=== PATIENT | female | born 1980 | race Caucasian/White ===

== ENCOUNTER 2025-05-11 08:58 | Outpatient (AMB) | payer OTHER, SELFPAY ==
--- OUTSIDE RECORDS SUMMARY | 2025-05-07 11:07 | XMS_ITS | Encounter Summary ---
Author Organization [facility] Address [address] [place] [address] Care Team Providers Care Grief Counselor Name Role Phone Caremn Berkowitz MD Primary Care Provider Unavailable Reason for Visit * Auth/Cert Specialty Diagnoses / Procedures Referred By Khari sanders Referred To Contact Diagnoses Stomach ache Procedures FL ESOPHAGOGASTRODUODENOSCOPY TRANSORAL DIAGNOSTIC FL EGD TRANSORAL BIOPSY SINGLE/MULTIPLE ENDOSCOPY UPPER Referral ID Status Reason Start Date Expiration Date Visits Re quested Visits Authorized [id number] 1 1 Encounter Details Date Type Department Care Team (Latest Contact Info) Description 05/07/2025 11:07 AM EDT - 05/07/2025 12:50 PM EDT Hospital Encounter [facility] Gastro[facility]ology [facility] [address] [place] [phone] Leo Cates MD 85 [facility] [address] [place] [address] Discharge Disposition: Home or Self Care Social History Tobacco Use Types Packs/Day Years Used Date Smoking Tobacco: Never Smokeless Tobacco: Never Alcohol Use Standard Drinks/Week Comments Never 0 (1 standard drink = 0.6 oz pur e alcohol) 0 AUDIT-C Answer Date Recorded Q1: How often do you have a drink containing alcohol? Never 05/06/2025 Q2: How many drinks containi ng alcohol do you have on a typical day when you are drinking? Patient does not drink Q3: How often do you have si x or more drinks on one occasion? Never 05/06/2025 Comments No Sex and Gender Information Value Date Recorded Sex Assigned at Female 01/07/2024 11:30 AM EDT Legal Sex Female 9:33 AM EDT Gender Identity Female 01/07/2024 11:30 AM EDT Sexual Orientation Not on file documented as of this encounter Last Filed Vital Signs Vital Sign Reading Time Taken Comments Blood Pressure 126/78 05/07/2025 12:34 PM EDT Pulse 83 05/07/2025 12:21 PM EDT Temperature 36.1 C (96.9 F) 05/07/2025 11:32 AM EDT Respiratory Rate 22 05/07/2025 12:34 PM EDT Oxygen Saturation 97% 05/07/2025 12:34 PM EDT Inhaled Oxygen Concentration - - Weight 120 kg (265 lb) 05/06/2025 9:29 AM EDT Height 157.5 cm (5' 2 ) 05/06/2025 9:29 AM EDT Body Mass Index 48.47 05/06/2025 9:29 AM EDT documented in this encounter Functional Status * Audit-C Score Answer Date of Assessment Author 0 05/06/2025 9:37 AM EDT Aftab Cleveland RN * Question Answer Date of Assessment Author Q1: How often do you have a drink containing alcohol? Never 05/06/2025 9:37 AM EDT Kenia Cleveland R N Q2: How many drinks containing alcohol do you have on a typical day when you are drinking? Patient does not drink 05/06/2025 9:37 AM EDT Kenia Cleveland RN Q3: How often do you have six or more drinks on one occasion? Never 05/06/2025 9:37 AM EDT Kenia Cleveland R N documented as of this encounter Medications at Time of Discharge Azelastine-Flutic asone 137-50 MCG/ACT SuspensionIndicat ions:Chronic rhinitis SHAKE LIQUID AND USE 2 SPRAYS IN EACH NOSTRIL TWICE DAILY 23 g 2 04/22/2025 budesonide (PULMICORT) 0.5 mg/2 mL nebulizer solutionIndicatio ns:Chronic pansinusitis Take 1 vial (0.5 mg total) by nebulization daily. 180 mL 3 02/10/2025 Cetirizine HCl (ZyrTEC Allergy) 10 MG Cap Take 1 capsule by mouth every morning. cholecalciferol (VITAMIN D3) 125 MCG (5000 UT) capsule Take 1 capsule (5,000 Units total) by mouth every morning. EPINEPHrine (ADRENALIN) 1 mg/mL Solution injection Inject 0.3 mL (0.3 mg total) under the skin once as needed. 04/01/2025 escitalopram (LEXAPRO) 10 MG tablet Take 1 tablet (10 mg total) by mouth every evening. 05/17/2023 inFLIXimab (REMICADE) 100 MG injection Infuse 5 mg/kg into a venous catheter See Admin Instructions. EVERY 7 WEEKS - IV Lipitor 10 MG tablet Take 1 tablet (10 mg total) by mouth every evening. Magnesium 500 MG Cap Take 1 tablet by mouth every morning. OMEprazole (PriLOSEC) 20 MG capsuleIndication s:Gastroesophagea l reflux disease, unspecified whether esophagitis present TAKE 1 CAPSULE(20 MG) BY MOUTH TWICE DAILY BEFORE BREAKFAST AND DINNER 180 capsule 3 04/01/2025 onabotulinum toxin type A (Botox) 100 units Recon Soln injection Inject into the shoulder, thigh, or buttocks. EVERY 3 MONTHS - FOR MIGRAINES Ubrelvy 100 MG tablet TAKE 1 TABLET BY MOUTH DAILY NEEDED FOR MIGRAINE HEADACHE. MAY REPEAT DOSE IN 2 HOURS. DO NOT EXCEED 2 DOSES IN 24 HOURS 01/07/2024 Unithroid 75 MCG tablet Take 1 tablet (75 mcg total) by mouth daily on an empty stomach. documented as of this encounter H&P Notes * Leo Cates MD - 05/07/2025 11:17 AM EDT PREOPERATIVE H&P PROCEDURE: EGD CHIEF COMPLAINT: GERD HPI: Patient is a 44 y.o. year old female with GERD Past Medical History: Diagnosis Date Anemia 2021 Levels have been good after endometrial ablation Anxiety Arthritis Ankylosing Spondylitis Asthma HAVENT USED INHALER YEARS - ALLERGIES Colon polyp Late Disease of thyroid gland 2020 Food intolerance 2000 Gluten/lactose GERD (gastroesophageal reflux disease) 2000 Hyperlipidemia 2010 Murmur FOLLOWED BY CARDIOLOGY PONV (postoperative nausea and vomiting) LAST TWO SURGERIES Past Surgical History: Procedure Laterality Date ACHILLES TENDON REPAIR Left 2023 CERVICAL DISC SURGERY 2022 COLONOSCOPY 2022 ENDOMETRIAL ABLATION 2022 ENDOSCOPY 2010s SHOULDER SURGERY 2004,2005, 2008, 2018 Family History Problem Relation Age of Onset Diabetes Mother Heart attack Mother Hypertension Mother Colon polyps Father Irritable bowel syndrome Father Heart attack Maternal Grandfather Autoimmune disease Maternal Grandmother Breast cancer Maternal Grandmother Diabetes Paternal Grandfather Ulcerative colitis Paternal Grandmother Cancer, other Maternal Aunt Social History Socioeconomic History Marital status: Spouse name: Not on file Number of children: Not on file Years of education: Not on file Highest education level: Not on file Occupational History Not on file Tobacco Use Smoking status: Never Smokeless tobacco: Never Substance and Sexual Activity Alcohol use: Never Comment: 0 Drug use: Never Sexual activity: Yes Partners: Male control/protection: Surgical Other Topics Concern Not on file Social History Narrative Not on file Social Drivers of Health Financial Resource Strain: Not on file Food Insecurity: Not on file Transportation Needs: Not on file Physical Activity: Not on file Stress: Not on file Social Connections: Not on file Housing Stability: Not on file Allergies[1] Scheduled Meds: Continuous Infusions:No current facility-administered medications for this encounter. PRN Meds:. Outpatient Medications Marked as Taking for the 05/07/25 encounter (Hospital Encounter): Azelastine-Fluticasone 137-50 MCG/ACT Suspension, SHAKE LIQUID AND USE 2 SPRAYS IN EACH NOSTRIL TWICE DAILY, Disp: 23 g, Rfl: 2 budesonide (PULMICORT) 0.5 mg/2 mL nebulizer solution, Take 1 vial (0.5 mg total) by nebulization daily. (Patient taking differently: Take 1 vial (0.5 mg total) by nebulization every morning.), Disp:180 mL, Rfl: 3 Cetirizine HCl (ZyrTEC Allergy) 10 MG Cap, Take 1 capsule by mouth every morning., Disp: , Rfl: cholecalciferol (VITAMIN D3) 125 MCG (5000 UT) capsule, Take 1 capsule (5,000 Units total) by mouthevery morning., Disp: , Rfl: EPINEPHrine (ADRENALIN) 1 mg/mL Solution injection, Inject 0.3 mL (0.3 mg total) under the skin once as needed., Disp: , Rfl: escitalopram (LEXAPRO) 10 MG tablet, Take 1 tablet (10 mg total) by mouth every evening., Disp: , Rfl: inFLIXimab (REMICADE) 100 MG injection, Infuse 5 mg/kg into a venous catheter See Admin Instructions. EVERY 7 WEEKS - IV, Disp: , Rfl: Lipitor 10 MG tablet, Take 1 tablet (10 mg total) by mouth every evening., Disp: , Rfl: Magnesium 500 MG Cap, Take 1 tablet by mouth every morning., Disp: , Rfl: OMEprazole (PriLOSEC) 20 MG capsule, TAKE 1 CAPSULE(20 MG) BY MOUTH TWICE DAILY BEFORE BREAKFAST AND DINNER, Disp: 180 capsule, Rfl: 3 onabotulinum toxin type A (Botox) 100 units Recon Soln injection, Inject into the shoulder, thigh, or buttocks. EVERY 3 MONTHS - FOR MIGRAINES, Disp: , Rfl: Ubrelvy 100 MG tablet, TAKE 1 TABLET BY MOUTH DAILY NEEDED FOR MIGRAINE HEADACHE. MAY REPEAT DOSE IN 2 HOURS. DO NOT EXCEED 2 DOSES IN 24 HOURS, Disp: , Rfl: Unithroid 75 MCG tablet, Take 1 tablet (75 mcg total) by mouth daily on an empty stomach., Disp: , Rfl: [DISCONTINUED] Multiple Vitamin (MULTI-VITAMIN DAILY PO), Take 1 tablet by mouth every morning., Disp: , Rfl: [DISCONTINUED] Probiotic Product ([facility] Intestinal Elyse Regulat) Cap, Take by mouth every morning.,Disp: , Rfl: [DISCONTINUED] Riboflavin 400 MG Tab, every morning., Disp: , Rfl: Ht 1.575 m (5' 2 ) Wt 120 kg (265 lb) BMI 48.47 kg/m?? Examination Abdomen: soft, NT, ND, BS + Neuro: AAO X 3, IMPRESSION: GERD PLAN: EGD ASA per anesthesia EGD Benefits and risks explained to patient including but not limited to bleeding, infection , perforation or anesthesia related side effects. [1] Allergies Allergen Reactions Codeine Other (See Comments) and Palpitations Tachycardia , hypotension, fainted Causes elevated HR and Low Blood pressure, pt also reports that it made her slow to wake up from anesthesia Penicillins Anaphylaxis, Hives, Rash/Dermatitis, Shortness Of Breath and Unknown/Patient and FamilyUnable to Define Clindamycin/Lincomycin Unknown/Patient and Family Unable to Define and Other (See Comments) Wound Dressing Adhesive Rash/Dermatitis blisters documented in this encounter Miscellaneous Notes * Discharge Instructions - Leo Cates MD - 05/07/2025 11:49 AM EDT Patient Instructions after an Upper Endoscopy (With or without Polypectomy or Biopsy) Patient Name: Roxanne Renteria Date of : 1980 Date of Procedure: Wednesday, May 07, 2025 Procedure Performed by: Leo Cates MD Normal symptoms that may occur after the procedure include: ? You may experience belching because air has been placed into your stomach. ? You may experience a sore throat for up to 24-48 hours. You may use throat lozenges or gargle with warm salt water to relieve the discomfort ? Temporary impairment of short-term memory due to sedative used for the procedure CALL YOUR Leo Cates MD at Work: IF YOU EXPERIENCE ANY OF THE FOLLOWING PROBLEMS: ? Chills and or fever greater than 100.5 degrees F ? Persistent nausea or vomiting ? Prolonged abdominal pain or bloating ? Pain, redness, or swelling at the site where your IV was placed that does not get better with warm compresses applied 4 times a day for 2 days ? Black, tarry stools ? Difficulty breathing ? Severe sore throat pain that has not resolved within 24-48 hours CHEST PAIN SHOULD BE TREATED AN EMERGENCY - CALL 911 IMMEDIATELY INSTRUCTIONS: Diet: Resume your usual diet today unless instructed otherwise by the doctor. Eisa-qdq-eqptthr medications: If polyp was removed or biopsy was performed- Try avoid taking NSAIDS (such as Advil, Motrin or Aleve) unless indicated below. Tylenol is acceptable Activity: ? Do not drive, drink alcohol, operate machinery, make important decisions, or do activities that require coordination for the rest of the day. ? Rest at home today. Light activity is permitted. Resume your usual activities tomorrow. Results: ? If biopsies have been taken or polyps removed, Your Pathology results will be available and reviewed by your physician within 7-10 days. Pathology results will be available to you electronically via our [employer] Me [employer] portal. Please check PlanetEye for these results and a message from your physician. ? If you do not have MyChart, you may sign up for [employer] Me Certified via the link found on the website: ([email or web address]), or please call your physician's office for pathology results within 7-10 days after your procedure MEDICATIONS Medications you received today: Propofol per Anesthesia RESUME YOUR USUAL MEDICATIONS. ANY CHANGES TO YOUR MEDICATIONS WILL BE LISTED BELOW: PHYSICIAN CONTACT INFORMATION Leo Cates MD at Work: Your doctor?s findings from your procedure: - Normal esophagus. Biopsied. - Normal stomach. Biopsied. - Normal examined duodenum. Your doctor recommends these additional instructions: - Patient has a contact number available for emergencies. The signs and symptoms of potential delayed complications were discussed with the patient. Return to normal activities tomorrow. Written discharge instructions were provided to the patient. - Resume previous diet. - Continue present medications. - Await pathology results. - The patient is not currently taking anticoagulant or antiplatelet agents. If you have any questions on the above instructions, call your physician. Patient Signature Relation to Patient Date Time RN Signature Date Time Leo Cates MD Leo Cates MD 05/07/2025 12:00:16 PM documented in this encounter Plan of Treatment Upcoming Encounters Date Type Department Care Team (Late st Contact Info) Description 06/02/2025 8:00 AM EDT Clinical Support [facility] [address], [place] [phone] Rose Vera Au.D [address] [place], [place] [id number] documented as of this encounter Procedures Procedure Name Priority Date/Time Associated Diagnosis Comments FL ESOPHAGOGASTRODUODENOSCOP Y TRANSORAL DIAGNOSTIC 05/07/2025 11:47 AM EDT Stomach ache PATHOLOGY REPORT Routine 05/07/2025 12:00 AM EDT documented in this encounter Results * Pathology (05/07/2025 12:00 AM EDT) Report [facility] HP-[id number] CLIA ID [id number] [address] [place] [address] Surgical Pathology Report PATIENT NAME: ROXANNE RENTERIA REC NUMBER: [id number] (AGE): 1980 (Age: 44) SPECIMEN NUMBER: [id number] DATE OBTAINED: 05/07/2025 DIAGNOSIS A. ENTIRE STOMACH, BIOPSY: ANTRAL MUCOSA WITH NO SPECIFIC PATHOLOGIC CHANGES; NO INFLAMMATION; NO HELICOBACTER PYLORI ORGANISMS SEEN ON H&E STAIN. B. ENTIRE ESOPHAGUS, BIOPSY: SQUAMOUS MUCOSA WITH NO SPECIFIC PATHOLOGIC CHANGES; NO INFLAMMATION/EOS INOPHILS. tsnm/05/09/2025 Electronically Signed Out MARIO ALCALA MD COMMENT [id number] Clinical Information and History: Procedure: Upper GI endoscopy. Indications: Heartburn. Impression: - Normal esophagus. Biopsied. - Normal stomach. Biopsied. - Normal examined duodenum. Tissue(s) Submitted: A: ENTIRE STOMACH, NORMAL B: ENTIRE ESOPHAGUS, NORMAL Gross Description: Specimen A is received in formalin labeled per the requisition as entire stomach, normal and consists of three aguiar-white to aguiar-pink irregular soft tissues ranging in size from 0.1 cm to 0.4 cm in greatest dimension. The specimen is submitted in toto labeled A1. Please note, the smallest tissue may not survive processing. Specimen B is received in formalin labeled per the requisition as entire esophagus, normal and consists of two aguiar-white to aguiar-pink irregular soft tissues measuring 0.2 cm and 0.3 cm. The specimen is submitted in toto labeled B1. [address] LAB 05/07/2025 05/07/2025 12: 14 PM EDT Comment:ENTIRE STOMACH, NORM AL&ENTIRE ESOPHAGUS, NORMAL us Leo Cates MD PATHOLOGY/CYTOLOGY ORDERABLE S Final Result HOSPITAL LAB See Below documented in this encounter Visit Diagnoses Not on filedocumented in this encounter Care Teams Grief Counselor Relationship Specialty Start Date End Date Carmen Berkowitz MD PCP - General Internal Medicine 01/07/24 documented as of this encounter
--- OUTSIDE RECORDS SUMMARY | 2025-05-07 11:15 | XMS_ITS | Encounter Summary ---
Author Organization [facility] Address [address] [place] [address] Care Team Providers Care Outpatient Therapist Name Role Phone Carmen Berkowitz MD Primary Care Provider Unavailable Reason for Visit * Auth/Cert Specialty Diagnoses / Procedures Referred By Khari t Referred To Contact Diagnoses Stomach ache Procedures [place] ESOPHAGOGASTRODUODENOSCOPY TRANSORAL DIAGNOSTIC [place] EGD TRANSORAL BIOPSY SINGLE/MULTIPLE ENDOSCOPY UPPER Referral ID Status Reason Start Date Expiration Date Visits Re quested Visits Authorized [id number] 1 1 Encounter Details Date Type Department Care Team (Late st Contact Info) Description 05/07/2025 11:15 AM EDT - 05/07/2025 11:45 AM EDT Surgery [facility] Gastroenterology Division [address] [place] [phone] Leo Cates MD [address] [address] ENDOSCOPY UPPER Social History Tobacco Use Types Packs/Day Years [...] Sign Reading Time Taken Comments Blood Pressure 127/79 05/07/2025 11:32 AM EDT Pulse 100 05/07/2025 11:32 AM EDT Temperature 36.1 C (96.9 F) 05/07/2025 11:32 AM EDT Respiratory Rate - - Oxygen Saturation 97% 05/07/2025 11:32 AM EDT Inhaled Oxygen Concentration - - Weight [...] Disease of thyroid gland 2020 Food intolerance 2001 Gluten/lactose GERD (gastroesophageal reflux disease) 2001 Hyperlipidemia 2010 Murmur FOLLOWED BY CARDIOLOGY PONV [...] morning., Disp: , Rfl: [DISCONTINUED] Probiotic Product ([facility] Intestinal Elyse Regulat) Cap, Take by mouth [...] today unless instructed otherwise by the doctor. [id number] medications: If polyp was removed or biopsy [...] be available to you electronically via our [employer] portal. Please check MyCube for these results and a message from your physician. ? If you do not have MyCube, you may sign up for [employer] via the link found on the website: ([email or web address]), or please call your physician's office for [...] Description 06/02/2025 8:00 AM EDT Clinical Support [facility] [address], [place] [address] Rose Vera Au.D [address] [place] [phone] documented as of this encounter Procedures Procedure Name Priority Date/Time Associated Diagnosis Comments [place] ESOPHAGOGASTRODUODENOSCOP Y TRANSORAL DIAGNOSTIC 05/07/2025 11:47 AM EDT Stomach ache PATHOLOGY REPORT Routine 05/07/2025 12:00 AM EDT documented in this encounter Results * Pathology (05/07/2025 12:00 AM EDT) Report [facility] [id number] CLIA ID [id number] [address] [place] [phone] Surgical Pathology Report PATIENT NAME: ROXANNE RENTERIA REC NUMBER: [id number] (AGE): 1980 (Age: 44) SPECIMEN NUMBER: [id number] DATE OBTAINED: 05/07/2025 DIAGNOSIS A. ENTIRE STOMACH, BIOPSY: ANTRAL MUCOSA WITH NO SPECIFIC PATHOLOGIC CHANGES; NO INFLAMMATION; NO HELICOBACTER PYLORI ORGANISMS SEEN ON H&E STAIN. B. ENTIRE ESOPHAGUS, BIOPSY: SQUAMOUS MUCOSA WITH NO SPECIFIC PATHOLOGIC CHANGES; NO INFLAMMATION/EOS INOPHILS. tswv/05/09/2025 Electronically Signed Out MARIO ALCALA MD COMMENT [id number] Clinical Information and History: Procedure: Upper GI [...] specimen is submitted in toto labeled B1. [address] LAB 05/07/2025 05/07/2025 12: 14 PM EDT Comment:ENTIRE STOMACH, NORM AL&ENTIRE ESOPHAGUS, NORMAL us Leo Cates MD PATHOLOGY/CYTOLOGY ORDERABLE S Final Result HOSPITAL LAB See Below documented in this encounter Visit Diagnoses Diagnosis Stomach ache Dyspepsia and other specified disorders of function of stomach documented in this encounter Care Teams Outpatient Therapist Relationship Specialty Start Date End Date Carmen Berkowitz MD PCP - General Internal Medicine 01/07/24 documented as of this encounter
--- OUTSIDE RECORDS SUMMARY | 2025-05-07 11:48 | XMS_ITS | Encounter Summary ---
Author Organization [facility] Address [address] [place] [address] Care Team Providers Care Agricultural Economics Teacher Name Role Phone Carmen Berkowitz MD Primary Care Provider Unavailable Reason for Visit * Auth/Cert Specialty Diagnoses / Procedures Referred By Khari t Referred To Contact Diagnoses Stomach ache Procedures IL ESOPHAGOGASTRODUODENOSCOPY TRANSORAL DIAGNOSTIC [place] EGD TRANSORAL BIOPSY SINGLE/MULTIPLE ENDOSCOPY UPPER Referral ID Status Reason Start Date Expiration Date Visits Re quested Visits Authorized [id number] 1 1 Encounter Details Date Type Department Care Team (Latest Contact Info) Description 05/07/2025 11:48 AM EDT Anesthesia Event [facility] [address] [place] [address] Iván Perdomo MD [address] [place] [address] Melinda Andrews PA-C [address] [address] Anesthesia Record Procedure Summary Procedure Name Responsible Anesthesiologist Anesthesia Start Time Anesthesia Stop Time ENDOSCOPY UPPER (Mouth) Iván Perdomo MD 05/07/25 1148 05/07/25 1205 Events Date Time Event Comment 05/07/2025 1109 AN Equip Check 1132 1148 An Start 1148 An Start Data 1153 An Induction 1201 AN Stop Data 1205 AN Pt Transferred 1205 An Stop 1205 Handoff to Receiving I compl eted my handoff to the receiving clinician during which we: 1. Identified the patient 2. Identified the responsible provider 3. Reviewed pertinent medical history 4. Discussed the surgical or procedural course 5. Reviewed intraoperative management and issues during anesthesia 6. Set expectations for the post-procedure period 7. Allowed opportunity for questions and acknowledgement of understanding. Meds Name Total propofol 10 mg/mL BOLUS 300 mg lidocaine 2% (PF) injection 5 mL 0.9% NaCl 250 mL * Agents Name Aux O2 O2 N2O Air * Blood No blood administrations on file. Lines, Drains, and Airways Type Details Placement Removal PIV-Single luman 05/07/25; 1151; meta carpal vein (top of hand), right; [id number] catheter system; 22 gauge 05/07/25 1151 by Ny Ordonez RN documented in this encounter Social History Tobacco Use Types Packs/Day Years [...] Sign Reading Time Taken Comments Blood Pressure - - Pulse - - Temperature - - Respiratory Rate - - Oxygen Saturation 98% 05/07/2025 12:00 PM EDT Inhaled Oxygen Concentration - - Weight - - Height - - Body Mass Index - - documented in this encounter OR Notes * Anesthesia Postprocedure Evaluation - Iván Perdomo MD - 05/07/2025 2:21 PM EDT Department of Anesthesiology Post-Anesthesia Evaluation Patient Name: Roxanne Renteria : 1980 Admission Date: 05/07/2025 Attending Provider: No att. providers found Date of Service: 05/07/2025 Procedure Summary Date: 05/07/25 Room / Location: GI ROOM 02 / GI Endoscopy Anesthesia Start: 1148 Anesthesia Stop: 1205 Procedure: ENDOSCOPY UPPER (Mouth) Diagnosis: Stomach ache (Stomach ache [R10.9]) Surgeons: Leo Cates MD Responsible Provider: Iván Perdomo MD Anesthesia Type: MAC ASA Status: 3 Anesthesia Type: MAC There were no known notable events for this encounter. Last vitals Vitals Value Taken Time BP 126/78 05/07/25 12:34 Temp Pulse 86 05/07/25 12:35 Resp 22 05/07/25 12:35 SpO2 93 % 05/07/25 12:36 Vitals shown include unfiled device data. Evaluation Vital signs are in the patient's normal range: Yes Respiratory function stable; airway patent: Yes Cardiovascular function and hydration status are stable: Yes Mental status recovered; patient participates in evaluation: Yes Pain control satisfactory: Yes Nausea and vomiting control is satisfactory: Yes This is an OB patient: No Quality Metrics Iván Perdomo MD 05/07/2025 2:21 PM * Anesthesia Preprocedure Evaluation - Iván Perdomo MD - 05/06/2025 8:42 AM EDT Department of Anesthesiology Pre-Procedure Evaluation Patient Name: Roxanne Renteria : 1980 Admission Date: (Not on file) Attending Provider: Leo Cates MD Date of Service: 05/06/2025 Scheduled Procedure: ENDOSCOPY UPPER, N/A - Mouth Pre-operative Diagnosis: Stomach ache [R10.9] Relevant Problems No relevant active problems Allergies[1] No data recorded Patient summary reviewed. Pre-procedure vital signs reviewed. NPO status verified. General History of anesthetic complications - History of PONV Respiratory Positives: asthma Cardiovascular - negative vascular ROS Positives: Exercise tolerance: >4 METS Negatives: pacemakerAdditional Findings: CT Coronary Calcium Score (2022): - Impression: no evidence of calcified plaque. - Total calcium score: 0 Neuromuscular Positives: headaches (migraine) GI/Hepatic/Renal Positives: GERD poorly controlled weight gain (BMI 48) Extreme obesity PONV Additional Findings: IBS Endo/MET Positives: hypothyroidism hyperlipidemia Additional Findings: Sophia's Hem/Lymph - negative hem/lymph ROS Skel/Skin - negative skel/skin ROS Positives: ankylosing spondylitis Psych Positives: anxiety HEENT Obstetrics Other Syndromes Additional Notes Presents electively for EGD in setting of worsening GERD/vomiting despite use of PPI She is her period now Physical Exam Airway Mallampati II TM distance >3 FB Neck ROM: full regular rhythm Pulmonary breath sounds clear to auscultation Abdominal Past Medical History: Diagnosis Date Anemia 2021 Levels have been good after endometrial ablation Arthritis Ankylosing Spondylitis Colon polyp Late Disease of thyroid gland 2020 Food intolerance 2000 Gluten/lactose GERD (gastroesophageal reflux disease) 2000 Hyperlipidemia 2010 PONV (postoperative nausea and vomiting) Past Surgical History: Procedure Laterality Date BACK SURGERY 2013 Cervical spine COLONOSCOPY 2022 ENDOSCOPY SHOULDER SURGERY 2003,2004, 2008, 2018 Family History Problem Relation Age of Onset Diabetes Mother Heart attack Mother Hypertension Mother Colon polyps Father Irritable bowel syndrome Father Heart attack Maternal Grandfather Autoimmune disease Maternal Grandmother Breast cancer Maternal Grandmother Diabetes Paternal Grandfather Ulcerative colitis Paternal Grandmother Cancer, other Maternal Aunt Tobacco/Alcohol/Drug HX[2] Ht Readings from Last 1 Encounters: 04/27/25 1.575 m (5' 2 ) Wt Readings from Last 1 Encounters: 04/27/25 120 kg (265 lb) There is no height or weight on file to calculate BMI. No results found for: WBC , HGB , HCT , PLT , NA , K , CO2 , CL , GLUC , BUN , CREAT , CALCIUM , ABORH , INR , PROTIME , PTT No results found for: ABORH , TYPE , SCREEN No results found for this or any previous visit (from the past 8760 hours). NPO Status: Anesthesia Plan ASA Score: ASA 3 Consent: The anesthetic plan and associated risks was discussed with patient. Anesthesia Plan: MAC anesthesia The plan was discussed with the following care providers: attendingand SCALE MECHANIC. Post-Operative Pain Management: Routine Analgesia and Antiemetics : The preliminary anesthesia plan and risks were discussed. The final anesthesia plan will be determined by the responsible anesthesiologist. Attending Note I personally evaluated and examined the patient prior to the intra-operative phase of care. Melinda Andrews PA-C [1] Allergies Allergen Reactions Codeine Other (See Comments) and Palpitations Tachycardia , hypotension, fainted Causes elevated HR and Low Blood pressure, pt also reports that it made her slow to wake up from anesthesia Penicillins Anaphylaxis, Hives, Rash/Dermatitis, Shortness Of Breath and Unknown/Patient and FamilyUnable to Define Clindamycin/Lincomycin Unknown/Patient and Family Unable to Define and Other (See Comments) [place] Extract Hives Latex Other (See Comments) Other Other (See Comments) [2] Tobacco/Alcohol/Drug HX Tobacco Use Smoking status: Never Smokeless tobacco: Never Substance Use Topics Alcohol use: Never Drug use: Never documented in this encounter Plan of Treatment Upcoming Encounters Date Type Department Care Team (Late st Contact Info) Description 06/02/2025 8:00 AM EDT Clinical Support [facility] [address] [id number] Rose Vera Au.D [address] [place] [address] documented as of this encounter Visit Diagnoses Not on filedocumented in this encounter Administered Medications Inactive Administered Medications - up to 1 most recent administrations Medication Order MAR Action Action Date Dose Rate Site sodium chloride 0.9% (NS) infusion Intravenous, Continuous PRN, Starting on Sat05/07/25 at 1151, Anesthesia Intra-op New Bag 05/07/2025 11:51 AM EDT lidocaine preservative free (XYLOCAINE-MPF) 2 % injection Intravenous, As needed, Starting on Sat05/07/25 at 1153, Anesthesia Intra-op Given 05/07/2025 11:53 AM EDT 5 mL propofol (diPRIvan) injection Intravenous, As needed, Starting on Sat05/07/25 at 1153, Anesthesia Intra-op Given 05/07/2025 11:59 AM EDT 50 mg documented in this encounter Care Teams Agricultural Economics Teacher Relationship Specialty Start Date End Date Carmen Berkowitz MD PCP - General Internal Medicine 01/07/24 documented as of this encounter
--- NOTE | 2025-05-11 09:00 | MHC.OFFVIS ---
Vital Signs 05/11/25 09:06 Blood Pressure Location Lt brachial Position Sitting Respiration 16 Pulse Oximetry (%) 97 Intake Visit Reasons: Re-Establish Care Migraine, Migraine Allergies codeine Allergy (Unknown, Verified 05/11/25 09:04) Hypertension Penicillins Allergy (Unknown, Verified 05/11/25 09:04) Anaphylaxis Medication List - Last Reconciled 05/11/25 by Yas Madden, ALFREDO atorvastatin 10 mg PO DAILY azelastine-fluticasone 137-50 mcg/spray 2 sprays intranasal BID cetirizine 10 mg PO DAILY PRN escitalopram oxalate 10 mg PO DAILY infliximab (Remicade) IV levothyroxine 88 mcg PO DAILY magnesium oxide 400 mg PO DAILY metformin ER 500 mg PO BID omeprazole 20 mg PO BID riboflavin (vitamin B2) 400 mg PO DAILY ubrogepant (Ubrelvy) 100 mg PO DAILY HPI Comments Details: Roxanne is a 44-year-old female patient with a past medical history of autoimmune disease and migraine who presents to the clinic to re-establish care with me here at [facility] for care and management of her chronic migraine. She originally started treatment for her migraine while in [place] and was placed on Botox therapy for prevention. This was largely due to her auto immune disease and hesitancy to trial antiepileptics or beta blockers with concurrent use of Remicade. She also has a history of asthma causing further hesitance for a trial of beta-blockers in the past. She has however trailed amitriptyline which caused excessive somnolence and did not work to prevent her migraines. Prior to initiation of Botox therapy she was having severe headaches accompanied by nausea and vomiting, severe light and sound sensitivity, and general inability to perform her ADLS as she notes that she was incompacitated . These migraine headaches were occuring on average 18 days per month lasting several hours. After initiation of Botox therapy her migraines have reduced both in frequency and duration. She now has a migraine headache on average 4 times per month. These migraines can last up to 4-6hrs but with use of Ubrelvy 100mg she has migraine resolution within a half hour. She also experiences less nausea, no vomiting, and less profound light and sound sensitivity now that she is on the Botox. She does sometimes have a visual aura at the start of her migraines. She does note some specific triggers for her migraines which include bright light as well as stress. Social: Lives home with belinda and 2 kids (14 and 11) Currently not working ETOH: None [place] use: None Caffine: Rare Tobacco: No Past medication trials: Sumatriptan oral- No improvement Sumatriptan nasal- No improvement Rizatriptan- No improvement Naratriptan- No improvement Nurtec- No improvement Ubrelvy- Works well Beta madyson- Contraindicated with history of asthma Amitriptyline- No improvement Toipramate- Not trailed d/t history of autoimmune disease as well as significant brain fog during her migraines Prior workup: Pt believes that her last MRI brain was performed in 2014 in [place]. Believes that her MRI was normal at that time. [facility] Medical History (Updated 05/11/25 @ 10:10 by Yas Madden CNP) Obesity Migraine Review of Systems Const All systems reviewed & are unremarkable except as noted in HPI and below ENT Reports Normal hearing present Neuro Reports Normal hearing present Physical Exam Vital Signs: Last Vital Signs Resp 16 05/11/25 09:06 Pulse Ox 97 05/11/25 09:06 Const General: cooperative, healthy appearing, comfortable and no acute distress Nutritional Appearance: well nourished Orientation/consciousness: patient oriented x3 Limitations: no limitations HEENT Head: Yes normal to inspection and Yes normocephalic Eyes General: appearance normal, both eyes and all related structures Visual Alejandro: normal visual alejandro by confrontation Alignment and Position: alignment normal Periorbital: periorbital findings normal Eyelids: Yes eyelids normal Conjunctivae: conjunctivae normal Sclerae: sclerae normal Direct Ophthalmoscopy: normal light reflex, no papilledema and fundi normal bilaterally Neck Neck: Yes normal visual inspection and Yes full ROM General: Yes no CVA tenderness Back/Spine/Pelvis Other: Mild tenderness to the bilateral trapezius muscles with some tenderness bilaterally Back: no CVA tenderness Cervical Spine: normal cervical lordosis Thoracic/Lumbar Spine: thoracic and lumbar spine normal to inspection Neuro General: patient oriented x3, tone normal and deep tendon reflexes 2+ bilaterally Cranial nerves: Yes CN's II-XII intact bilaterally, Yes Facial sensation intact/muscles of mastication intact and Yes Normal hearing present Cognition (Neuro): normal cognition Gait exam (Neuro): Normal gait present Motor exam (neuro): 01/04 motor strength present throughout and no tremor noted Sensory Exam: double simultaneous stimulation for sensation normal Romberg Test: Negative Pupils: Normal pupillary reactivity/response: bilateral Psych Appearance: grossly normal Mental Status: mental status grossly normal Speech and movement: Normal speech and movement present and Clear speech present Affect: normal affect Attitude: cooperative Thought process: Normal thought process present Thought content: Normal thought content present Insight: Good insight present (Psych) Judgement: Good judgement present (Psych) Assessment & Plan Assessment & Plan (1) Migraine: Code(s): G43.909 - Migraine, unspecified, not intractable, without status migrainosus (2) Chronic migraine with aura without status migrainosus, not intractable: Comment: Chronic migraine very well controlled with Botox therapy as well as ubrelvy 100mg as needed for acute therapy. Will continue this regimen and see her back in the office later this month for her Botox procedure once PA has been re-established with [facility]. Code(s): G43.E09 - Chronic migraine with aura, not intractable, without status migrainosus Category: Medical Plan Re-establish PA for Botox therapy and plan to complete Botox therapy later this month when she is due Continue ubrelvy 100mg as needed for acute migraine therapy Medications: New ubrogepant (Ubrelvy) 100 mg PO DAILY 8 tabs 5RF Coding Level of Care Code New Pt Level 4 (15370) Diagnoses Migraine G43.909 Chronic migraine with aura without status migrainosus, not intractable G43.E09
[2025-05-11 09:06] VITALS: RESP 16; O2SAT 97
--- OUTSIDE RECORDS SUMMARY | 2025-05-11 10:13 | XMS_ITS | Patient Health Record ---
Author Organization [facility] Address [address] [facility] [address] [address] [place] [phone] Care Team Providers Care Consulting Sales Manager Name Role Phone Bianca Irvin Unavailable [phone] Allergies Allergen (clinical drug ingredient) Drug/Non Drug Allergy documented on EMR Reaction Allergy Type Onset Date Status Substance with penicillin structure and antibacterial mechanism of action (substance) Penicillins (uncoded) (ROBERT) Allergy Active Medications Medication SIG (Take, Route, Frequency, Duration) Notes Start Date End Date Status Raven once a day Active Prevacid 15 MG Capsule Delayed Release 1 capsule before a meal Orally Once a day Active Dymista 137-50 MCG/ACT Suspension 1 puff in each nostril Nasally Twice a day Active Social History Section Notes: ([facility] [place]) Employment : Employed Exercise : Has an Exercise Routine Tobacco Use : Doesn't Use Tobacco Alcohol Consumption : Doesn't Drink Caffeine Consumption : 2 / Day ([facility] [place]) Employment : Employed Exercise : Has an Exercise Routine Tobacco Use : Doesn't Use Tobacco Alcohol Consumption : Doesn't Drink Caffeine Consumption : 2 / Day ([facility] [place]) Employment : Employed Exercise : Has an Exercise Routine Tobacco Use : Doesn't Use Tobacco Alcohol Consumption : Doesn't Drink Caffeine Consumption : 2 / Day Problems Problem Type SNOMED Code ICD Code Onset Dates Problem Status W/U Status Risk Notes Problem Goiter (9183396) Goiter, unspecified (240.9) Active confirmed Problem Mixed hyperlipidemia (316091004) Mixed hyperlipidemia (272.2) Active confirmed Problem Mixed hyperlipidemia (760838752) Mixed hyperlipidemia (272.2) Active confirmed Problem Essential hypertension (80971696) Unspecified essential hypertension (401.9) Active confirmed Problem Abnormal weight gain (422869154) Abnormal weight gain (783.1) Active confirmed Plan Of Treatment No Information Insurance Providers Payer Name Payer Address Payer Phone Subscriber Number Group Number Insured Name Patient Relationship to Insured Coverage Start Date Coverage End Date [id number] [place] [id number] Roxanne Renteria Self - patient is the insured 9
--- OUTSIDE RECORDS SUMMARY | 2025-05-11 10:13 | XMS_ITS | Clinical Summary ---
Author Organization [facility] Address [address] [place] [address] Phone Care Team Providers Care Family Specialist Name Role Phone Carmen Berkowitz MD Primary Care Pr ovider Allergies Active Allergy Reactions Criticality Noted Date Comments Codeine 11/14/2022 Penicillins 11/14/2022 Medications azelastine-flut icasone 137-50 mcg/spray spray,non-aeros ol spray/apply 1 spray in each nostril 2 (two) times a day. 3 Active cholecalciferol , vitamin D3, 100 mcg (4,000 unit) tablet daily. Active magnesium oxide (MAG-OX) 400 mg (241.3 elemental magnesium) tablet daily. Active omeprazole (PriLOSEC) [address] capsule Take 1 capsule (20 mg total) by mouth 2 (two) times a day. 3 Active L. acidophilus/Bif id. animalis 33 billion cell capsule Take by mouth. Active riboflavin (VITAMIN B2) 400 mg tablet daily. Active ubrogepant (Ubrelvy) 100 mg tablet Take 1 tablet (100 mg total) by mouth 1 (one) time. Active atorvastatin (LIPITOR) 10 mg tablet TAKE 1 TABLET BY MOUTH DAILY 90 tablet 1 5 Active cetirizine (ZyrTEC) 10 mg capsule Take 1 capsule (10 mg total) by mouth 1 (one) time each day. 6 Active levothyroxine (SYNTHROID, LEVOTHROID) 88 mcg tablet Take 1 tablet (88 mcg total) by mouth 1 (one) time each day before breakfast. Active escitalopram (LEXAPRO) 10 mg tablet Take 1 tablet (10 mg total) by mouth 1 (one) time each day. 90 tablet 1 5 Active infliximab-dyyb (INFLECTRA IV) Infuse into a venous catheter. Q 7 weeks Active indomethacin (INDOCIN) 25 mg capsule Take 2 capsules (50 mg total) by mouth 3 (three) times a day with meals. 180 each 5 04/16/20 Active Problems Problem Noted Date Diagnosed Date Chronic sinusitis 02/18/2025 Hypoglycemia 02/18/2025 PCOS (polycystic ovarian syndrome) 02/18/2025 Migraine 08/04/2024 Iron deficiency anemia 08/04/2024 Hypothyroidism 08/04/2024 Anxiety 08/04/2024 Other hyperlipidemia 08/04/2024 Atherosclerosis 08/04/2024 Class 3 drug-induced obesity with serious comorbidity and body mass index (BMI) of 45.0 to 49.9 in adult ([facility] V24, [facility] V28) 08/04/2024 Heart murmur 08/04/2024 Ankylosing spondylitis ([facility] V24, [facility] V28 ) 04/02/2023 Overview (11/05/2023): Last Assessment & Plan: Her coronary artery calcium score was 0. It does not appear that her ankylosing spondylitis has affected her heart and any quantifiable weight. Nonetheless we will continue to monitor clinically. Encounters Date Type Department Care Team Description 04/02/2025 Telephone Rheumatology - [facility] [address] [place] [phone] Jacinta Kumar MA 03/22/2025 Telephone Rheumatology - [facility] [address] [place] [address] Bo Velazquez MA 03/17/2025 11:30 AM EDT Office Visit Rheumatology - [facility] [address] [place] [address] Lucas Patterson MD Ankylosing spondylitis of multiple sites in spine ([facility] V24, [facility] V28) (Primary Dx); Infliximab (Remicade) long-term use; Elevated C-reactive protein (CRP) 03/16/[address] [facility] [address] [place] [address] Marcos Daigle RN 02/18/2025 10:00 AM EDT Office Visit Adult Medicine [address] [phone] Rosanna Roche PA Annual physical exam (Primary Dx); Ankylosing spondylitis, unspecified site of spine ([facility] V24, [facility] V28); Chronic sinusitis, unspecified location; Hypothyroidism, unspecified type; Hypoglycemia; PCOS (polycystic ovarian syndrome); Other migraine without status migrainosus, not intractable; Anxiety; Heart murmur 02/12/[address] [facility] [address] [facility] [place] [address] Jacinta Kumar MA 02/10/2025 Telephone [facility] [address] [facility] [address] [place] [address] Teagan Almeida MA from Last 3 Months Immunizations Name Administration Dates Next Due H1N1 Inj 06/02/2010 Influenza Quadravalent, MDCK , 0.5ml, preservative free (Flucelvax) 6mo and older 05/17/2023 Influenza Quadrivalent, with preservative (Fluzone; Afluria) 6mo and older 05/03/2016 Influenza trivalent, 0.5mL, preservative free (Fluarix; FluLaval; Fluzone) ages 6mo and older (Afluria) 3 years and older 05/19/2024 Influenza, Unspecified 05/27/2021 Tdap Tetanus diptheria acell ular pertussis (Boostrix; Adacel) 7yo and older 05/17/2023,06/08/2013 Surgical History Surgery Date Site/Laterality Comments LASER ABLATION PROCEDURE:LASER ABLATION SPINE SURGERY PROCEDURE:SPINE SURGERY;COMMENT:cervical SHOULDER SURGERY PROCEDURE:SHOULDER SURGERY SINUS SURGERY PROCEDURE:SINUS SURGERY OSTECTOMY 02/04/2024 Left PROCEDURE:OSTECTOMY CALCANEUS;COMMENT:Procedure: EXCISION CALCANEAL SPUR; Surgeon: Petey Padilla DPM; Location: [facility]; Service: Podiatry; Laterality: Left; ACHILLES TENDON SURGERY 02/04/2024 Left PROCEDURE:ACHILLES TENDON SURGERY;COMMENT:Procedure: ACHILLES TENDON DETACHMENT AND REATTCHMENT; Surgeon: Petey Padilla DPM; Location: [facility]; Service: Podiatry; Laterality: Left; OTHER SURGICAL HISTORY PROCEDURE: VA HYSTEROSCOPY ENDOMETRIAL ABLATION; COMMENT: October 2022 OTHER SURGICAL HISTORY PROCEDURE: HISTORY OTHER; COMMENT: history of cervical spine surgery - 2013 OTHER SURGICAL HISTORY PROCEDURE: HISTORY OTHER; COMMENT: bilateral shoulder arthroscopies (2017 - R), (2003 - L) OTHER SURGICAL HISTORY PROCEDURE: HISTORY OTHER; COMMENT: 2014 - deviated septum Medical History Medical History Date Comments Ankylosing spondylitis of si te in spine ([facility] V24, [facility] V28) DX:Ankylosing spondylitis o f site in spine ([facility]) Anxiety DX:Anxiety Ankylosing spondylitis of yeimi mbosacral region ([facility] V24, [facility] V28) 04/02/2023 DX:Ankylosing spondy litis of lumbosacral region ([facility]) Migraine headache DX:Migraine he adache GERD (gastroesophageal reflux disease) DX:GERD (gastroesophageal reflux disease) Asthma DX:Asthma;COMMEN T:hx no inhalers past 8 yrs Visual impairment DX:Visual impairment;COMMENT:glasses TMJ dysfunction DX:TMJ dysfuncti on;COMMENT:Full ROM Shingles DX:Shingles Hypothyroidism DX:Hypothyroidis m Hypoglycemia DX:Hypoglycemia Anemia DX:Anemia Heart murmur DX:Heart murmur; COMMENT:mild F/U in 5 yrs with cardio per pt Anesthesia DX:Anesthesia;CO MMENT:slow to arouse after nitrous oxide at dental office Anxiety disorder DX:Anxiety diso rder BRCA negative DX:BRCA negative ; COMMENT: tested due to maternal grandmother history Menorrhagia with regular cycle 05/17/2023 D X:Menorrhagia with regular cycle Family History Medical History Relation Name Comments Breast cancer Maternal Grandmother Diabetes Mother Other: Other Mother cardiac stents, bypass surgery leg, vascular dementia Thyroid disease Mother Alzheimer's disease Uncle paternal uncle Colon cancer Neg Hx Ovarian cancer Neg Hx Relation Name Status Comments Father Alive Maternal Grandfather Maternal Grandmother Mother Paternal Grandfather Paternal Grandmother Sister Alive Uncle paternal uncle Other Social History Tobacco Use Types Packs/Day Years Used Date Smoking Tobacco: Never Smokeless Tobacco: Never Tobacco Cessation:Counseling Given: Not Answered Alcohol Use Standard Drinks/Week Comments Never 0 (1 standard drink = 0.6 oz pur e alcohol) Housing Instability Answer Date Recorde d Are you worried that in the next 2 months you may not have stable housing? Patient declined 02/18/2025 Food Access & Nutrition Answer Date Rec orded Do you have access to a vari ety of food including fruits and vegetables? Patient declined 02/18/2025 Access to Healthcare Answer Date Record ed Within the last 3 months, ho w many times did you visit the emergency department for your medical care? 0 07/28/2024 Health Literacy Answer Date Recorded How often do you need to hav e someone help you when you read instructions, pamphlets, or other written material from your doctor or pharmacy? Patient declined 02/18/2025 Caregiver: How often do you need to have someone help you when you read instructions, pamphlets, or other written material from your doctor or pharmacy? Not on file 025 Financial Risk Answer Date Recorded How hard is it for you to pa y for the very basics like food, housing, medical care, and air conditioning / heating? Patient declined 02/18/2025 Transportation Answer Date Recorded Has the lack of transportati on kept you from meetings, work, or from getting things needed for daily living? Patient declined 02/18/2025 Has the lack of transportati on kept you from medical appointments or from getting medications? Patient declined 02/18/2025 Social Isolation Answer Date Recorded How often do you feel lonely or isolated from those around you? Patient declined 02/18/2025 Food Risk Answer Date Recorded Within the past 12 months we worried whether our food would run out before we got money to buy more. Patient declined 025 Within the past 12 months th e food we bought just didn't last and we didn't have money to get more. Patient declined 01/31 Dependent Care Answer Date Recorded Do you need help finding or paying for care for your loved ones. For example, child welfare manager or elderly care for an older adult? Patient declined 02/18/2025 Education Answer Date Recorded Do you think completing more education or training, like finishing a GED, going to college, or learning a trade, would be helpful for you? Patient declined 02/18/2025 Employment and Income Answer Date Recor ded During the last four weeks, have you been actively looking for work? Patient declined 02/18/2025 Living Situation Answer Date Recorded What is your living situation? 0 02/18/2025 Comments No Sex and Gender Information Value Date Recorded Sex Assigned at Not on file Legal Sex Female 8:06 PM EST Gender Identity Not on file Sexual Orientation Not on file Obstetrics History Last Filed Vital Signs Vital Sign Reading Time Taken Comments Blood Pressure 120/82 03/17/2025 11:43 AM EDT Pulse 88 03/17/2025 11:43 AM EDT Temperature 36.7 C (98 F) 02/18/2025 9:56 AM EDT Respiratory Rate 14 02/18/2025 9:56 AM EDT Oxygen Saturation 98% 03/17/2025 11:43 AM EDT Inhaled Oxygen Concentration - - Weight 121 kg (267 lb) 03/17/2025 11:43 AM EDT Height 157.5 cm (5' 2 ) 03/17/2025 11:43 AM EDT Body Mass Index 48.83 03/17/2025 11:43 AM EDT Plan of Treatment Upcoming Encounters Date Type Department Care Team (Late st Contact Info) Description 05/24/2025 2:00 PM EDT Office Visit Rheumatology - [facility] [address] [place] [phone] Lucas Patterson MD [address] [place] [address] 06/02/2025 10:45 AM EDT Office Visit Endocrinology [address] [phone] Cinda Chatman PA [address] [place] [address] 08/20/2025 9:30 AM EST Office Visit Adult Medicine [address] [phone] Carmen Berkowitz MD [address] [place] [phone] 02/23/2026 12:00 PM EDT Office Visit Adult [address] [phone] Carmen Berkowitz MD [address] [place] [phone] Health Maintenance Due Date Last Done Comments Hepatitis B Vaccines (1 of 3 - 19+ 3-dose series) 2001 HIV Screening 09/26/2023 COVID-19 Vaccine (3 - Moderna risk series) 06/16/2024 05/19/2024, 06/07/2023 Breast Cancer Screening 07/09/2024 07/09/2022 Influenza Vaccine (#1) 2025 , 05/17/2023, 05/27/2021, Additional history exists Social Influencers of Health Screening 02/18/2026 02/18/2025 Cervical Cancer Screening: Pap Smear 07/03/2026 07/03/2023 Cholesterol Screening (Lipid Panel) 04/24/2029 04/24/2024, 04/24/2024, 12/02/2023 DTaP,Tdap,and Td Vaccines (3 - Td or Tdap) 05/17/2033 05/17/2023, 06/08/2013 Hepatitis C Screening Completed 04/16/2023 Depression Screening Completed 02/11/2025 HIB Vaccines Aged Out No longer eligi ble based on patient's age to complete this topic HPV Vaccines Aged Out No longer eligi ble based on patient's age to complete this topic Hepatitis A Vaccines Aged Out No long er eligible based on patient's age to complete this topic IPV Vaccines Aged Out No longer eligi ble based on patient's age to complete this topic MMR Vaccines Aged Out No longer eligi ble based on patient's age to complete this topic Meningococcal ACWY Vaccine Aged Out N o longer eligible based on patient's age to complete this topic Meningococcal B Vaccine Aged Out No l onger eligible based on patient's age to complete this topic Pneumococcal Vaccine: Pediatrics (0 to 5 Years) and At-Risk Patients (6 to 49 Years) Aged Out No longer eligible based on patient's age to complete this topic RSV Immunization Patients Under 20 months Aged Out No longer eligible based on patient's age to complete this topic Varicella Vaccines Aged Out No longer eligible based on patient's age to complete this topic Medical Devices Implanted Type Area Marketing Project Manager Device Identifier Shelf Expiration Date Model / Serial / Lot [place] [employer] K[employer] P[employer]a Sgl 3.9mm Stry-Spr [id number] Implanted:Qty: 2 on 02/04/2024 by Petey Padilla DPM Left: Foot [employer] 09/09/2025 [id number] / / [id number] [employer] Implant Implanted:Qty: 1 on 02/04/2024 by Petey Padilla DPM Left: Foot [employer] 04/26/2025 REF # [id number] Description:#04.5X24MM XPRES S SYSTEM [employer] Implant Implanted:Qty: 1 on 02/04/2024 by Petey Padilla DPM Left: Foot [employer] 04/26/2025 REF # [phone] [id number] Description:04.5 X 24MM Procedures Procedure Name Priority Date/Time Associated Diagnosis Comments CBC WITH AUTO DIFFERENTIAL Routine 03/01/2025 1:34 PM EDT Seronegative spondyloarthropathy Infliximab (Remicade) long-term use Ankylosing spondylitis of multiple sites in spine ([facility] V24, [facility] V28) Elevated C-reactive protein (CRP) SEDIMENTATION RATE Routine 03/01/2025 1: 34 PM EDT Seronegative spondyloarthropathy Infliximab (Remicade) long-term use Ankylosing spondylitis of multiple sites in spine ([facility] V24, [facility] V28) Elevated C-reactive protein (CRP) CBC AND DIFFERENTIAL Routine 03/01/2025 1:34 PM EDT Seronegative spondyloarthropathy Infliximab (Remicade) long-term use Ankylosing spondylitis of multiple sites in spine ([facility] V24, [facility] V28) Elevated C-reactive protein (CRP) C-REACTIVE PROTEIN Routine 03/01/2025 1: 34 PM EDT Seronegative spondyloarthropathy Infliximab (Remicade) long-term use Ankylosing spondylitis of multiple sites in spine ([facility] V24, [facility] V28) Elevated C-reactive protein (CRP) COMPREHENSIVE METABOLIC PANEL Routine 03/01/2025 1:34 PM EDT Seronegative spondyloarthropathy Infliximab (Remicade) long-term use Ankylosing spondylitis of multiple sites in spine ([facility] V24, [facility] V28) Elevated C-reactive protein (CRP) LIPID PANEL Routine 12/02/2023 HM PAP SMEAR Routine 07/03/2023 HEPATITIS C SCREENING Routine 04/16/2023 from Last 3 Months or Most Recently Relevant to Health Maintenance Results * (ABNORMAL) CBC auto differential (03/01/2025 1:34 PM EDT) Pathologist [facility] White Blood Cell Count 10.7 3.8 - 10.8 Thousand/ uL [facility] RBC Count 4.71 3.80 - 5.10 Million/u L [facility] Hemoglobin 12.8 11.7 - 15.5 g/dL [facility] Hematocrit 40.5 35.0 - 45.0 % [facility] MCV 86.0 80.0 - 100.0 fL [facility] MCH 27.2 27.0 - 33.0 pg [facility] MCHC 31.6(L) 32.0 - 36.0 g/dL [facility] Comment: For adults, a slight decrease in the calculated MCHC value (in the range of 30 to 32 g/dL) is most likely not clinically significant; however, it should be interpreted with caution in correlation with other red cell parameters and the patient's clinical condition. RDW 14.0 11.0 - 15.0 % [facility] Platelet Count 333 140 - 400 Thousand/ uL [facility] MPV 10.0 7.5 - 12.5 fL [facility] Absolute Neutrophil 5,671 1,500 - 7,800 cells/uL [facility] Absolute Lymphocytes 4,366(H) 850 - 3,900 cells/uL [facility] Absolute Monocytes 556 200 - 950 cells/uL [facility] Absolute Eosinophils 75 15 - 500 cells/uL [facility] Absolute Basophils 32 0 - 200 cells/uL [facility] Neutrophils 53 % [facility] Lymphocytes 40.8 % [facility] Monocytes 5.2 % [facility] Eosinophils 0.7 % [facility] Basophils 0.3 % [facility] Blood Venous blood specimen / Unknown 03/01/2025 1:34 PM EDT 03/01/2025 1:34 PM EDT Narrative [facility] ([facility]) - 03/02/2025 12:57 PM EDT FASTING:NO FASTING: NO us Lucas Patterson MD LAB BLOOD ORDERABLES Final Resul t [facility] ([facility]) [facility] [address] [place] [phone] * (ABNORMAL) Sedimentation rate (03/01/2025 1:34 PM EDT) Sedimentation Rate Modified Westergren 43(H) < OR = 20 mm/h [facility] Blood Venous blood specimen / Unknown 03/01/2025 1:34 PM EDT 03/01/2025 1:34 PM EDT [facility] - 03/02/2025 12:57 PM EDT FASTING:NO FASTING: NO Lucas Patterson MD LAB BLOOD ORDERABLES Final Resul t Performing Organization Address [facility] Co de Phone Number [employer] [facility] ([facility]) [facility] [address] [place] [phone] * (ABNORMAL) C-reactive protein (03/01/2025 1:34 PM EDT) Pathologist [facility] C-Reactive Protein 14.6(H) <8.0 mg/L [facility] Blood Venous blood specimen / Unknown 03/01/2025 1:34 PM EDT 03/01/2025 1:34 PM EDT [facility] ([facility]) - 03/02/2025 12:57 PM EDT FASTING:NO FASTING: NO Lucas Patterson MD LAB BLOOD ORDERABLES Final Resul t Performing Organization Address [facility] de Phone Number [employer] [facility] ([facility]) [facility] [address] [place] [phone] * Comprehensive metabolic panel (03/01/2025 1:34 PM EDT) Pathologist [facility] Glucose 102 65 - 139 mg/dL [facility] Comment: Non-fasting reference interval Urea Nitrogen (BUN) 10 7 - 25 mg/dL [facility] Creatinine 0.77 0.50 - 0.99 mg/dL [facility] eGFR 99 > OR = 60 mL/min/1 .73m2 [facility] BUN/Creatinine Ratio SEE NOTE: 6 - 22 (calc) [facility] Comment: Not Reported: BUN and Creatinine are within reference range. Sodium 136 135 - 146 mmol/L [facility] Potassium 4.0 3.5 - 5.3 mmol/L [facility] Chloride 102 98 - 110 mmol/L [facility] Carbon Dioxide 26 20 - 32 mmol/L [facility] Calcium 9.2 8.6 - 10.2 mg/dL [facility] Total Protein 7.2 6.1 - 8.1 g/dL [facility] Albumin 4.0 3.6 - 5.1 g/dL [facility] Globulin 3.2 1.9 - 3.7 g/dL (calc) [facility] Albumin/Globulin Ratio 1.3 1.0 - 2.5 (calc) [facility] Bilirubin Total 0.3 0.2 - 1.2 mg/dL [facility] Alkaline Phosphatase 57 31 - 125 U/L [facility] Aspartate aminotransferase (AST) 13 10 - 30 U/L [facility] Alanine Aminotransferase (ALT) 12 6 - 29 U/L [facility] Blood Venous blood specimen / Unknown 03/01/2025 1:34 PM EDT 03/01/2025 1:34 PM EDT Narrative [facility] ([facility]) - 03/02/2025 12:57 PM EDT FASTING:NO FASTING: NO Lucas Patterson MD LAB BLOOD ORDERABLES Final Resul t [facility] ([facility]) [employer] [address] [phone] * Lipid panel (12/02/2023) LDL/HDL Ratio 3 0 - 4 Triglycerides 149 0 - 150 mg/dL Cholesterol 177 0 - 200 mg/dL HDL 59 >=40 mg/dL LDL Cholesterol 89 0 - 100 mg/dL Blood Venous blood specimen / Unknown Historical Provider LAB BLOOD ORDERABLES Margy l Result * Hm Pap Smear (07/03/2023) HM Pap smear No Interpretation , Abstracted Historical Provider HEALTH MAINTENANCE Final Result * Hepatitis C Screening (04/16/2023) Hepatitis C Screening Abstracted Historical Provider HEALTH MAINTENANCE Final Result from Last 3 Months or Most Recently Relevant to Health Maintenance Insurance [employer] Care Teams Family Specialist Relationship Specialty Start Date End Date Carmen Berkowitz MD [address] [place] [phone] PCP - General 01/22/24
--- OUTSIDE RECORDS SUMMARY | 2025-05-11 10:13 | XMS_ITS | Patient Health Record ---
Author Organization [employer] Address [address] [place] [address] Care Team Providers Care Hr Assistant Name Role Phone Mylene Ballard MD Primary Care Provider Yovanny sarkar Reason For Referral No Information Medications Medication SIG (Take, Route, Frequency, Duration) Notes Start Date End Date Status Dexilant 60 milligrams once a day; Duration: 30 days *please review for potential update for e-prescription and drug interaction check* Strength and Dose Form:60 mg delayed release capsule 11/12/2014 Active ALPRAZolam 0.25 MG Tablet Oral 3 times a day Strength and Dose Form:0.25 mg tablet 12/23/2014 Active Azithromycin 500 MG Tablet Oral once a day; Duration: 3 days Strength and Dose Form:500 mg tablet 11/21/2014 Active Fluconazole 100 MG Tablet Oral once a day; Duration: 30 days Strength and Dose Form:100 mg tablet 12/23/2014 Active Metoclopramide Hydrochloride 5 milligrams 4 times a day (before meals and at bedtime); Duration: 30 days *please review for potential update for e-prescription and drug interaction check* Strength and Dose Form:5 mg tablet 11/22/2014 Active Pantoprazole 40 milligrams once a day; Duration: 30 days *please review for potential update for e-prescription and drug interaction check* Strength and Dose Form:40 mg delayed release tablet 11/26/2014 Active Betamethasone-Clotrima zole 2 times a day; Duration: 10 days *please review for potential update for e-prescription and drug interaction check* Strength and Dose Form:0.05%-1% cream 12/23/2014 Active Problems Problem Type SNOMED Code ICD Code Onset Dates Problem Status W/U Status Risk Notes Problem Acquired deformity of ankle AND/OR foot (39686303) Pronation Excessive (736.79) 03/17/2015 Active confirmed Problem Tibialis tendinitis (73517541) Tibial Tendonitis (726.72) 02/14/2015 Active confirmed Problem Plantar fasciitis (618232156) Plantar Fasciitis (728.71) 02/14/2015 Active confirmed Plan Of Treatment No Information Insurance Providers Payer Name Payer Address Payer Phone Subscriber Number Group Number Insured Name Patient Relationship to Insured Coverage Start Date Coverage End Date [facility] [address] [place], [place] [address] [id number] Rosalino Renteria Spouse - patient is the spouse of the insured 5
--- OUTSIDE RECORDS SUMMARY | 2025-05-11 10:13 | XMS_ITS | Encounter Summary ---
Author Organization [facility] Address [address] [place] [address] Care Team Providers Care Bonded Strand Operator Name Role Phone Carmen Berkowitz MD Primary Care Provider Unavailable Encounter Details Date Type Department Care Team (Late st Contact Info) Description 08/16/2024 Scanned Document [facility] 80 [facility] [address] [place] [phone] Provider, Generic Social History Tobacco Use Types Packs/Day Years Used Date Smoking Tobacco: Never Assessed Comments Unknown Sex and Gender Information Value Date Recorded Sex Assigned at Female 01/07/2024 11:30 AM EDT Legal Sex Female 9:33 AM EDT Gender Identity Female 01/07/2024 11:30 AM EDT Sexual Orientation Not on file documented as of this encounter Plan of Treatment Upcoming Encounters Date Type Department Care Team (Late st Contact Info) Description 06/02/2025 8:00 AM EDT Clinical Support [facility] [address], [place] [phone] Rose Vera Au.D [address] [place] [phone] documented as of this encounter Visit Diagnoses Not on filedocumented in this encounter Care Teams Bonded Strand Operator Relationship Specialty Start Date End Date Carmen Berkowitz MD PCP - General Internal Medicine 01/07/24 documented as of this encounter
--- OUTSIDE RECORDS SUMMARY | 2025-05-11 10:13 | XMS_ITS | Encounter Summary ---
Author Organization [facility] Address [address] [place] [address] Care Team Providers Care Rn Night Name Role Phone Carmen Berkowitz MD Primary Care Provider Unavailable Encounter Details Date Type Department Care Team (Late st Contact Info) Description 08/16/2024 Scanned Document [facility] 80 [facility] [address] [place] [phone] Provider, Generic Social History Tobacco Use [...] Description 06/02/2025 8:00 AM EDT Clinical Support [facility] [address], [place] [phone] Rose Vera Au.D [address] [place] [phone] documented as of this encounter Visit Diagnoses Not on filedocumented in this encounter Care Teams Rn Night Relationship Specialty Start Date End Date Carmen Berkowitz MD PCP - General Internal Medicine 01/07/24 documented as of this encounter
--- OUTSIDE RECORDS SUMMARY | 2025-05-11 10:14 | XMS_ITS | Patient Health Record ---
Author Organization [facility] Address [id number] [facility] [place] [address] Care Team Providers Care Energy And Conservation Technician Name Role Phone Ever Sales Primary Care Provider [phone] Allergies Allergen (clinical drug ingredient) Drug/Non Drug Allergy documented on EMR Reaction Allergy Type Onset Date Status codeine Codeine Sulfate tachycardia Drug Allergy Active acetaminophen / hydrocodone Hydrocodone-Acetami nophen tachycardia Drug Allergy Active morphine Morphine Sulfate tachycardia Drug Allergy Active penicillin G Penicillin G Potassium itching Drug Allergy Active Reason For Referral No Information Medications Medication SIG (Take, Route, Frequency, Duration) Notes Start Date End Date Status Clotrimazole-Betamethasone 1-0.05 % 1 application to affected area Externally Twice a day Active Dymista 137-50 MCG/ACT Nasally Active ZyrTEC Allergy 10 MG 1 tablet as needed Orally Once a day Active Dexilant 60 MG 1 capsule Orally Onc e a day Active Social History Tobacco Use: Social History Observation Description Date Details (start date - stop date) Never Smoker NA - NA Tobacco Use/Smoking Question Answer Notes Are you a nonsmoker Alcohol Screen Question Answer Notes Did you have a drink containing alcohol in the p ast year? No Tobacco use other than smoking: Question Answer Notes Are you an other tobacco user? No Problems Problem Type SNOMED Code ICD Code Onset Dates Problem Status W/U Status Risk Notes Problem Allergic rhinitis (12457600) Allergic rhinitis, cause unspecified (477.9) Active confirmed ears do better when pollen counts are lower Problem Dysfunction of eustachian tube (71931105) Dysfunction of Eustachian tube (381.81) Active confirmed bilateral Problem Disorder of ear (89894016) Other disorders of ear (388.8) Active confirmed bilateral ear fullness, probably due to ear fullness Plan Of Treatment No Information Insurance Providers Payer Name Payer Address Payer Phone Subscriber Number Group Number Insured Name Patient Relationship to Insured Coverage Start Date Coverage End Date [employer]IG[employer] [address] YOHAN BOLANOS [id number] Rosalino Renteria Spouse - patient is the spouse of the insured Medical (General) History Medical History History ICD Code allergies asthma gastroesophageal reflux disease (GERD) Surgical History Surgery Date(Month/Year) shoulder arthroscopy left anterior approach cervical fusion/l aminectomy
--- OUTSIDE RECORDS SUMMARY | 2025-05-11 10:14 | XMS_ITS | Patient Health Record ---
Author Organization [facility] Address [address] [id number] Care Team Providers Care Java Developer With Security Clearance Name Role Phone Mylene Ballard Primary Care Provider Unavailab Beto Zaman Unavailable [phone] Henry Coley Unavailable Unavailable Allergies Allergen (clinical drug ingredient) Drug/Non Drug Allergy documented on EMR Reaction Allergy Type Onset Date Status Narcotics (uncoded) Unknown Allergy Active penicillin Unknown Drug Allergy Active Reason For Referral No Information Medications Medication SIG (Take, Route, Frequency, Duration) Notes Start Date End Date Status multivitamin Multiple Vitamins 1 cap(s) orally once a day Active omeprazole 40 mg 1 cap(s) orally once a day; Duration: 30 Active ZyrTEC 10 mg 1 tab(s) orally once a day Active Dymista 137 mcg-50 mcg/inh 1 spray(s) intranasally 2 times a day Active Align (obsolete) 4 mg 1 cap(s) orally on ce a day; Duration: 28 day(s) Active Dexilant 60 mg 1 cap(s) orally once a day; Duration: 30 Not-Taking Nexium 40 mg 1 cap(s) orally BID; Duration: 30 day(s) Not-Taking PriLOSEC 40 mg 1 cap(s) orally once a day; Duration: 30 days Active Patient is NOT on any anticoagulants as directed Active Suprep Bowel Prep kit -- As directed By Mouth; Duration: 1 01/16/2017 Active Problems Problem Type SNOMED Code ICD Code Onset Dates Problem Status W/U Status Risk Notes Problem Gastroesophageal reflux disease (495939718) GERD (PQRI) (530.81) Active confirmed Problem Irritable bowel syndrome (10051162) IBS [Irritable bowel syndrome] (564.1) Active confirmed Problem Gastroesophageal reflux disease (disorder) (198579841) GERD [Gastroesophag eal reflux disease] (530.81) Active confirmed Problem Gastroesophageal reflux disease (221971558) GERD (gastroesophag eal reflux disease) (K21.9) Active confirmed Problem History of adenomatous polyp of colon (194473717) History of adenomatous polyp of colon (Z86.010) Active confirmed Plan Of Treatment Pending Test Test Name Order Date Upper GI series 11/22/2014 EGD 01/04/2015 EGD 09/07/2015 EGD 12/23/2015 Colonoscopy 10/30/2016 Insurance Providers Payer Name Payer Address Payer Phone Subscriber Number Group Number Insured Name Patient Relationship to Insured Coverage Start Date Coverage End Date [employer] Ppo [address] [place] [address] [id number] Rosalino Renteria Spouse - patient is the spouse of the insured Medical (General) History Medical History History ICD Code Irritable bowel syndrome Lactose intolerance Polyps- (Tubular Adenoma) Polycystic ovarian disease Surgical History Surgery Date(Month/Year) EGD--Polyps were found in th e body of the stomach. BX : SMALL INTESTINAL MUCOSA WITH NO SIGNIFICANT HISTOPATHOLOGIC FINDINGS, GASTRIC FUNDIC POLYP, MILD ESOPHAGITIS 12/26/2015 Sinus surgery 08/17/2015 Spinal surgery- cervical bulding discs 1 10/2013 Colonoscopy- Polyp removed- (Tubular Linh noma) 03/17/2012 Endoscopy- Normal 2005 Colonoscopy- Normal 2005 Surgery in both shoulders
--- OUTSIDE RECORDS SUMMARY | 2025-05-11 10:14 | XMS_ITS | Encounter Summary ---
Author Organization [facility] Address [address] [place] [address] Care Team Providers Care Radio Repairer Domestic Name Role Phone Carmen Berkowitz MD Primary Care Provider Unavailable Encounter Details Date Type Department Care Team (Late st Contact Info) Description 01/14/2025 Scanned Document [facility] [address] [phone] Samy Conn MD [address] [place] [phone] Social History Tobacco Use Types Packs/Day Years Used Date Smoking Tobacco: Never Smokeless Tobacco: Never Comments No Sex and Gender Information Value Date Recorded Sex Assigned at Female 01/07/2024 11:30 AM EDT Legal Sex Female 9:33 AM EDT Gender Identity Female 01/07/2024 11:30 AM EDT Sexual Orientation Not on file documented as of this encounter Plan of Treatment Upcoming Encounters Date Type Department Care Team (Late st Contact Info) Description 06/02/2025 8:00 AM EDT Clinical Support [facility] [address] [phone] Rose Vera Au.D [address] [place] [phone] documented as of this encounter Visit Diagnoses Not on filedocumented in this encounter Care Teams Radio Repairer Domestic Relationship Specialty Start Date End Date OgCarmen saleem MD PCP - General Internal Medicine 01/07/24 documented as of this encounter
--- OUTSIDE RECORDS SUMMARY | 2025-05-11 10:14 | XMS_ITS | Clinical Summary ---
Author Organization [facility] Address [address] [place] [address] Care Team Providers Care Legal Biller Name Role Phone Carmen Berkowitz MD Primary Care Pr ovider Allergies Active Allergy Reactions Criticality Noted Date Comments Codeine High 11/14/2022 Tachycardia , hypotension, fainted Penicillins Anaphylaxis High 11/14/2022 Medications Medication Sig Dispensed Refills Start Date End Date Status atorvastatin (LIPITOR) tablet 10 mg every night at bedtime. 0 12/12/2018 Active Azelastine-Fluticaso ne 137-50 MCG/ACT SUSP spray/apply 1 spray in each nostril 2 (two) times a day. 0 11/06/2022 Active Cholecalciferol 100 MCG (4000 UT) CAPS daily. 0 Active escitalopram (LEXAPRO) tablet 10 mg every night at bedtime. 0 Active levothyroxine (SYNTHROID) tablet 50 mcg Take 1.5 tablets (75 mcg total) by mouth daily. 0 Active magnesium oxide (MAG-OX) 400 MG tablet daily. 0 Active omeprazole (PriLOSEC) 20 MG capsule Take 1 capsule (20 mg total) by mouth 2 (two) times a day. 0 09/24/2022 Active Riboflavin 400 MG TABS daily. 0 Active Probiotic Product (Misc Intestinal Elyse Regulat) CAPS Take by mouth daily. 0 Active budesonide (PULMICORT) 0.5 MG/2ML nebulizer solution ADD 1 VIAL(2 ML) TO BRIE MED NASAL AND RINSE DAILY 0 02/12/2023 Active inFLIXimab (REMICADE IV) Inject into the vein. 0 Active Ubrelvy 100 MG TABS TAKE 1 TABLET BY MOUTH DAILY NEEDED FOR MIGRAINE HEADACHE. MAY REPEAT DOSE IN 2 HOURS. DO NOT EXCEED 2 DOSES IN 24 HOURS 0 01/07/2024 Active loratadine (Claritin) 10 MG tablet Take 1 tablet (10 mg total) by mouth daily. 0 Active traMADol (ULTRAM) 50 MG tablet Take 50 mg by mouth every 6 (six) hours as needed for pain. 30 tablet 0 02/04/2024 Active Active Problems Problem Noted Date Diagnosed Date Ankylosing spondylitis of lumbosacral region 09/2022 Family History Relation Name Status Comments Father Alive Mother Social History Tobacco Use Types Packs/Day Years Used Date Smoking Tobacco: Never Smokeless Tobacco: Never Tobacco Cessation:Counseling Given: Not Answered Alcohol Use Standard Drinks/Week Comments Never 0 (1 standard drink = 0.6 oz pur e alcohol) Sex and Gender Information Value Date Recorded Sex Assigned at Female 11/14/2022 10:59 AM EDT Gender Identity Not on file Sexual Orientation Not on file Job Start Date Occupation Industry Not on file Not on file Not on file Last Filed Vital Signs Vital Sign Reading Time Taken Comments Blood Pressure 111/75 06/09/2024 12:05 PM EDT Pulse 74 06/09/2024 12:05 PM EDT Temperature 36.4 C (97.5 F) 06/09/2024 12:05 PM EDT Respiratory Rate 16 06/09/2024 12:0 5 PM EDT Oxygen Saturation 98% 06/09/2024 12: 05 PM EDT Inhaled Oxygen Concentration - - Weight 120.6 kg (265 lb 12.8 oz) 06/09/2024 9:06 AM EDT Height 157.5 cm (5' 2 ) 01/30/2024 2:29 PM EDT Body Mass Index 48.62 01/30/2024 2:29 PM EDT Plan of Treatment Health Maintenance Due Date Last Done Comments Hepatitis B Vaccines (1 of 3 - 3-dose series) 1982 Depression Screening 1994 BMI Counseling 2000 Preventative Health Evaluation 2000 Cervical Cancer Screening (Pap Smear) 2003 COVID-19 Vaccine ( season) 2025 06/12/2021, 10/14/2020, 09/23/2020 Influenza Vaccine (#1) 2025 , 07/03/2019, 05/03/2016, Additional history exists DTap / Tdap / Td (4 - Td or Tdap) 05/17/2033 05/17/2023, 06/08/2013, 09/02/2012 Hepatitis C Screening Completed 04/16/2023 Pneumococcal Vaccine Aged Out No long er eligible based on patient's age to complete this topic RSV Ped < 20 months Aged Out No longe r eligible based on patient's age to complete this topic Medical Devices Implanted Type Area Flipping Machine Operator Device Identifier Shelf Expiration Date Model / Serial / Lot [employer] Peek Knotless Erie Sgl 3.9mm Stry-Sprt [id number] - [id number] Implanted:Qty: 2 on 02/04/2024 by Pteey Padilla DPM at [facility] Left: Foot [employer] 09/09/2025 [id number] [employer] Implant Implanted:Qty: 1 on 02/04/2024 by Petey Padilla DPM at [facility] and [facility] Left: Foot [employer] 04/26/2025 REF # [id number] Description:#04.5X24MM XPRES S SYSTEM [employer] Implant Implanted:Qty: 1 on 02/04/2024 by Petey Padilla DPM at [facility] and [facility] Left: Foot [employer] 04/26/2025 REF # [id number] Description:04.5 X 24MM Care Teams Legal Biller Relationship Specialty Start Date End Date Carmen Berkowitz MD [address] [place] [address] PCP - General 01/22/24
--- OUTSIDE RECORDS SUMMARY | 2025-05-11 10:14 | XMS_ITS | Encounter Summary ---
Author Organization [facility] Address [address] [place] [address] Care Team Providers Care Associate Professor Of Art History Name Role Phone Carmen Berkowitz MD Primary Care Provider Unavailable Reason for Visit * Reason Onset Date Comments EGD 05/05/2025 Encounter Details Date Type Department Care Team (Late st Contact Info) Description 05/05/2025 [address]phone [facility] [address] [place] [phone] [place] [address] EGD Social History Tobacco Use Types Packs/Day Years Used Date Smoking Tobacco: Never Smokeless Tobacco: Never Alcohol Use Standard Drinks/Week Comments Never 0 (1 standard drink = 0.6 oz pur e alcohol) AUDIT-C Answer Date Recorded Q1: How often [...] on file documented as of this encounter Functional Status * Audit-C Score [...] R N documented as of this encounter Miscellaneous Notes * Telephone Encounter - Terri Wang MA - 05/06/2025 10:03 AM EDT Spoke to patient. We never have them stop their probiotic prior to EGD. Just NPO after midnight tonight. * Telephone Encounter - Belinda Romero - 05/06/2025 9:52 AM EDT Incoming call received from Pre-Admission testing at GI reporting that the patient has been taking her probiotic supplement up until yesterday 05/05. stated that they typically advise that patients hold the medication x10 days prior to the procedure, and are required to report that information to the MD. The patient will not be taking the supplement today 05/06 or tomrrow 05/07. Procedure scheduled 05/07. * Telephone Encounter - Kim Barton MA - 05/05/2025 8:41 AM EDT Left message to confirm procedure time documented in this encounter Plan of Treatment Upcoming Encounters Date Type Department Care Team (Late st Contact Info) Description 06/02/2025 8:00 AM EDT Clinical Support [facility] [address], [place] [phone] Rose Vera Au.D [address] [place] [phone] documented as of this encounter Visit Diagnoses Not on filedocumented in this encounter Care Teams Associate Professor Of Art History Relationship Specialty Start Date End Date Carmen Berkowitz MD PCP - General Internal Medicine 01/07/24 documented as of this encounter
--- OUTSIDE RECORDS SUMMARY | 2025-05-11 10:14 | XMS_ITS | Encounter Summary ---
Author Organization [facility] Address [address] [place] [address] Care Team Providers Care Attendance Officer Name Role Phone Carmen Berkowitz MD Primary Care Provider Unavailable Encounter Details Date Type Department Care Team (Late st Contact Info) Description 12/31/2024 Scanned Document [facility] 80 [facility] [address] [place] [phone] Provider, Generic Social History Tobacco Use [...] Description 06/02/2025 8:00 AM EDT Clinical Support [facility] [address], [facility] [place] [phone] Rose Vera Au.D [address] [place] [address] documented as of this encounter Visit Diagnoses Not on filedocumented in this encounter Care Teams Attendance Officer Relationship Specialty Start Date End Date Carmen Berkowitz MD PCP - General Internal Medicine 01/07/24 documented as of this encounter
--- OUTSIDE RECORDS SUMMARY | 2025-05-11 10:14 | XMS_ITS | Clinical Summary ---
Author Organization [facility] Address [address] [place] [address] Care Team Providers Care Bottom Turner Name Role Phone Carmen Berkowitz MD Primary Care Provider Unavailable Allergies Active Allergy Reactions Criticality Noted Date Comments Clindamycin/Lincomycin Unknown/Patient a nd Family Unable to Define,Other (See Comments) Medium 06/26/2016 Codeine Other (See Comments),Palpitatio ns High 02/24/2021 Tachycardia , hypotension, fainted Causes elevated HR and Low Blood pressure, pt also reports that it made her slow to wake up from anesthesia Penicillins Anaphylaxis,Hives,Ra sh/Dermatitis,Shortn ess Of Breath,Unknown/Patie nt and Family Unable to Define High 04/06/2011 Wound Dressing Adhesive Rash/Dermatitis Low 05/07/2025 blisters Medications Lipitor 10 MG tablet Take 1 tablet (10 mg total) by mouth every evening. Active Cetirizine HCl (ZyrTEC Allergy) 10 MG Cap Take 1 capsule by mouth every morning. Active cholecalcifero l (VITAMIN D3) 125 MCG (5000 UT) capsule Take 1 capsule (5,000 Units total) by mouth every morning. Active escitalopram (LEXAPRO) 10 MG tablet Take 1 tablet (10 mg total) by mouth every evening. 023 Active inFLIXimab (REMICADE) 100 MG injection Infuse 5 mg/kg into a venous catheter See Admin Instructions. EVERY 7 WEEKS - IV Active Unithroid 75 MCG tablet Take 1 tablet (75 mcg total) by mouth daily on an empty stomach. Active Magnesium 500 MG Cap Take 1 tablet by mouth every morning. Active onabotulinum toxin type A (Botox) 100 units Recon Soln injection Inject into the shoulder, thigh, or buttocks. EVERY 3 MONTHS - FOR MIGRAINES Active Ubrelvy 100 MG tablet TAKE 1 TABLET BY MOUTH DAILY NEEDED FOR MIGRAINE HEADACHE. MAY REPEAT DOSE IN 2 HOURS. DO NOT EXCEED 2 DOSES IN 24 HOURS 024 Active budesonide (PULMICORT) 0.5 mg/2 mL nebulizer solutionIndica tions:Chronic pansinusitis Take 1 vial (0.5 mg total) by nebulization daily. 180 mL 3 025 Active Additional Information Patient taking differently:0.5 mg NebulizationEvery morning, Reason: Other, Reported on 05/07/2025 OMEprazole (PriLOSEC) 20 MG capsuleIndicat ions:Gastroeso phageal reflux disease, unspecified whether esophagitis present TAKE 1 CAPSULE(20 MG) BY MOUTH TWICE DAILY BEFORE BREAKFAST AND DINNER 180 capsule 3 025 Active Azelastine-Flu ticasone 137-50 MCG/ACT SuspensionIndi cations:Chroni c rhinitis SHAKE LIQUID AND USE 2 SPRAYS IN EACH NOSTRIL TWICE DAILY 23 g 2 025 Active EPINEPHrine (ADRENALIN) 1 mg/mL Solution injection Inject 0.3 mL (0.3 mg total) under the skin once as needed. 025 2025 Active Azelastine-Flu ticasone (DYMISTA NA) 1 Dose into each nostril every morning. 2024 Discontinued( Therapy completed) Multiple Vitamin (MULTI-VITAMIN DAILY PO) Take 1 tablet by mouth every morning. 2024 Discontinued OMEprazole (PriLOSEC OTC) 20 MG tablet 2024 Discontinued( Duplicate Prescription - No E-Cancel/No AVS) Probiotic Product ([facility] [place] Regulat) Cap Take by mouth every morning. 2024 Discontinued Riboflavin 400 MG Tab every morning. 2024 Discontinued fluticasone (FloNASE) 50 mcg/spray nasal sprayIndicatio ns:Acute bacterial sinusitis 1 spray into each nostril daily. 1 each 025 2024 Discontinued( Med List Clean-up/Old Med - No E-Cancel/No AVS) Azelastine-Flu ticasone 137-50 MCG/ACT SuspensionIndi cations:Chroni c rhinitis SHAKE LIQUID AND USE 2 SPRAYS IN EACH NOSTRIL TWICE DAILY 23 g 2 025 2024 Discontinued Azelastine-Flu ticasone 137-50 MCG/ACT SuspensionIndi cations:Chroni c rhinitis SHAKE LIQUID AND USE 2 SPRAYS IN EACH NOSTRIL TWICE DAILY 23 g 2 025 2024 Discontinued indomethacin (INDOCIN) 25 MG capsule 025 2024 Discontinued( Therapy completed) Active Problems Problem Noted Date Diagnosed Date Atherosclerosis 08/04/2024 Anxiety 08/04/2024 Heart murmur 08/04/2024 Iron deficiency anemia 08/04/2024 Migraine 08/04/2024 Class 3 drug-induced obesity with serious comorbidity and body mass index (BMI) of 45.0 to 49.9 in adult 08/04/2024 Iron deficiency 07/03/2022 Anemia 04/19/2022 Trochanteric bursitis of left hip 01/05/2021 Ankylosing spondylitis 02/09/2020 Overview (02/08/2025): Last Assessment & Plan: Her coronary artery calcium score was 0. It does not appear that her ankylosing spondylitis has affected her heart and any quantifiable weight. Nonetheless we will continue to monitor clinically. Hypothyroidism 02/09/2020 Incomplete tear of right rotator cuff 10/23/2018 Calcific tendonitis 08/08/2018 Arthralgia of right acromioclavicular joint 03/2018 Alopecia 09/21/2016 Acne 09/21/2016 Hirsutism 09/21/2016 History of spinal fusion 09/21/2016 Overview (02/08/2025): c5-6 herniated disc Hyperlipidemia 09/21/2016 Hyperprolactinemia 09/21/2016 Non-toxic uninodular goiter 09/21/2016 Polycystic ovary syndrome 09/21/2016 Prediabetes 09/21/2016 Reactive hypoglycemia 09/21/2016 Vitamin D deficiency 09/21/2016 Abnormal weight gain 06/14/2016 Malaise and fatigue 06/14/2016 Need for Tdap vaccination 06/08/2013 Overview (02/08/2025): TDAP GIVEN ON 06/08/13.RS contractions 06/08/2013 Breech presentation 03/16/2013 GERD (gastroesophageal reflux disease) 3 Sciatica 03/16/2013 First trimester screening 02/16/2013 Screening for human papillomavirus (HPV) 013 Well woman exam 12/18/2012 Encounters Date Type Department Care Team Description 05/07/2025 11:48 AM EDT Anesthesia Event [facility] [address] [place] [address], [place] [phone] Iván Perdomo MD Clair, Hannah A, PA-C 05/07/2025 11:15 AM EDT - 05/07/2025 11:45 AM EDT Surgery [facility] [address] [place] [phone] Leo Cates MD ENDOSCOPY UPPER 05/07/2025 11:07 AM EDT - 05/07/2025 12:50 PM EDT Hospital Encounter [facility] [address] [place] [address], [place] [phone] Leo Cates MD Discharge Disposition: Home or Self Care 05/06/2025 Travel 05/05/[address] [place] [phone] Kim Barton MA EGD 04/27/2025 10:00 AM EDT Telemedicine [facility] [address] [place] [address] Petra Sampson APRN Gastroesophageal reflux disease, unspecified whether esophagitis present (Primary Dx); Irritable bowel syndrome with diarrhea; History of colon polyps 04/27/2025 Travel 04/22/2025 Refill [facility] [address], [facility] [place] [phone] Samy Conn MD Chronic rhinitis 04/22/2025 Refill [facility] [address], [place] [phone] Samy Conn MD Chronic rhinitis 04/01/2025 Refill [facility] [address] [place] [phone] Anni Maciel PA Gastroesophageal reflux disease, unspecified whether esophagitis present 02/10/2025 Refill [facility] [address] [place] [phone] Samy Conn MD Chronic pansinusitis (Primary Dx) 02/08/2025 1:15 PM EDT Office Visit [facility] [address], [place] [phone] Samy Conn MD Chronic pansinusitis (Primary Dx); Non-seasonal allergic rhinitis due to pollen; Bacterial sinusitis from Last 3 Months Immunizations Immunization Administration Dates Next Due H1N1 Inj 06/02/2010 Influenza (AFLURIA/FLUZONE) Inactivated/Split Quadrivalent with Preservative IM 05/03/2016 Influenza, Unspecified 05/27/2021 Tdap 06/08/2013 Family History Medical History Relation Name Comments Colon polyps Father Juan Irritable bowel syndrome Father Juan Cancer, other Maternal Aunt Michela Heart attack Maternal Grandfather Phil Autoimmune disease Maternal Grandmother Vianney Breast cancer Maternal Grandmother Vianney Diabetes Mother Mirlande Heart attack Mother Mirlande Hypertension Mother Mirlande Diabetes Paternal Grandfather Crispin Ulcerative colitis Paternal Grandmother Etta Relation Name Status Comments Father Juan Alive Maternal Aunt Michela Alive Maternal Grandfather [place] Alive Maternal Grandmother Vianney Alive Mother Mirlande Alive Paternal Grandfather Crispin Alive Paternal Grandmother Etta Alive Social History Tobacco Use Types Packs/Day Years [...] AM EDT Sexual Orientation Not on file Last Filed Vital Signs [...] Mass Index 48.47 05/06/2025 9:29 AM EDT Plan of Treatment Upcoming Encounters Date Type Department Care Team (Late st Contact Info) Description 06/02/2025 8:00 AM EDT Clinical Support [facility] [address], [place] [phone] Rose Vera Au.D [address] [place] [address] Health Maintenance Due Date Last Done Comments Hepatitis C Virus Screening 1982 COVID-19 Vaccine (#1) 1987 Quantiferon Gold TB 1992 HIV Screening 1995 Hepatitis B Vaccines (1 of 3 - 19+ 3-dose series) 2001 Pneumococcal Vaccine: Pediat jody (0-5 Years) and At-Risk Patients (6 to 49 Years) (1 of 2 - PCV) 2001 Pap Smear (Ages 21-65) 2003 HPV Vaccines (1 - 3-dose SCD M series) 2009 Mammogram 2022 DTaP/Tdap/Td Vaccines (2 - T d or Tdap) 06/08/2023 06/08/2013 Influenza Vaccine 04/02/2025 05/19/2024, , 05/27/2021, Additional history exists Medical Devices Implanted Type Area Overhead Foreman Device Identifier Shelf Expiration Date Model / Serial / Lot Screw Screw Neck Procedures Procedure Name Priority Date/Time Associated Diagnosis Comments OR ESOPHAGOGASTRODUODENOSCOP Y TRANSORAL DIAGNOSTIC 05/07/2025 11:47 AM EDT Stomach ache PATHOLOGY REPORT Routine 05/07/2025 12:00 AM EDT from Last 3 Months Results * Pathology (05/07/2025 12:00 AM EDT) Report [facility] [id number] CLIA ID [id number] [address] [place] [address] [phone] Surgical Pathology Report PATIENT NAME: ROXANNE RENTERIA REC NUMBER: [id number] (AGE): 1980 (Age: 44) SPECIMEN NUMBER: [id number] DATE OBTAINED: 05/07/2025 DIAGNOSIS A. ENTIRE STOMACH, BIOPSY: ANTRAL MUCOSA WITH NO SPECIFIC PATHOLOGIC CHANGES; NO INFLAMMATION; NO HELICOBACTER PYLORI ORGANISMS SEEN ON H&E STAIN. B. ENTIRE ESOPHAGUS, BIOPSY: SQUAMOUS MUCOSA WITH NO SPECIFIC PATHOLOGIC CHANGES; NO INFLAMMATION/EOS INOPHILS. [facility]/05/09/2025 Electronically Signed Out MARIO ALCALA MD COMMENT [id number] Clinical Information and History: Procedure: Upper GI [...] specimen is submitted in toto labeled B1. 1 [facility] 05/07/2025 05/07/2025 12: 14 PM EDT Comment:ENTIRE STOMACH, NORM AL&ENTIRE ESOPHAGUS, NORMAL us Leo Cates MD PATHOLOGY/CYTOLOGY ORDERABLE S Final Result HOSPITAL LAB See Below from Last 3 Months Insurance [facility] [employer] [place] [id number] [employer] [place] [id number] [employer] [place] [id number] [employer] [place] [id number] Care Teams Bottom Turner Relationship Specialty Start Date End Date Carmen Berkowitz MD PCP - General Internal Medicine 01/07/24
--- OUTSIDE RECORDS SUMMARY | 2025-05-11 10:14 | XMS_ITS | Encounter Summary ---
Author Organization [facility] Address [address] [place] [address] Care Team Providers Care Vp Ad Sales West Name Role Phone Carmen Berkowitz MD Primary Care Provider Unavailable Encounter Details Date Type Department Care Team (Late st Contact Info) Description 09/24/2024 Scanned Document [facility] 80 [facility] [address] [place] [phone] Provider, Generic Social History Tobacco Use [...] Description 06/02/2025 8:00 AM EDT Clinical Support [facility] [address], [facility] [place] [phone] Rose Vera Au.D [address] [place] [address] documented as of this encounter Visit Diagnoses Not on filedocumented in this encounter Care Teams Vp Ad Sales West Relationship Specialty Start Date End Date Carmen Berkowitz MD PCP - General Internal Medicine 01/07/24 documented as of this encounter
--- OUTSIDE RECORDS SUMMARY | 2025-05-11 10:14 | XMS_ITS | Encounter Summary ---
Author Organization [facility] Address [address] [place] [address] Care Team Providers Care Private Watchman Name Role Phone Carmen Berkowitz MD Primary Care Provider Unavailable Encounter Details Date Type Department Care Team (Late st Contact Info) Description 09/24/2024 Scanned Document [facility] 80 [facility] [address] [place] [phone] Provider, Generic Social History Tobacco Use [...] Description 06/02/2025 8:00 AM EDT Clinical Support [facility] [address], [facility] [place] [phone] Rose Vera Au.D [address] [place] [address] documented as of this encounter Visit Diagnoses Not on filedocumented in this encounter Care Teams Private Watchman Relationship Specialty Start Date End Date Carmen Berkowitz MD PCP - General Internal Medicine 01/07/24 documented as of this encounter
--- OUTSIDE RECORDS SUMMARY | 2025-05-11 10:14 | XMS_ITS | Encounter Summary ---
Author Organization [facility] Address [address] [place] [address] Care Team Providers Care High Speed Operator Name Role Phone Carmen Berkowitz MD Primary Care Provider Unavailable Encounter Details Date Type Department Care Team (Latest Contact Info) Description 05/06/2025 Travel Social History Tobacco Use Types Packs/Day Years [...] does not drink 05/06/2025 9:37 AM EDT Piper, Kenia M, RN Q3: How often do you have six or more drinks on one occasion? Never 05/06/2025 9:37 AM EDT Kenia Cleveland R N documented as of this encounter Plan of Treatment Upcoming Encounters Date Type Department Care Team (Late st Contact Info) Description 06/02/2025 8:00 AM EDT Clinical Support [facility] [address] [place] [phone] Rose Vera Au.D [address] [place] [address] documented as of this encounter Visit Diagnoses Not on filedocumented in this encounter Care Teams High Speed Operator Relationship Specialty Start Date End Date Carmen Berkowitz MD PCP - General Internal Medicine 01/07/24 documented as of this encounter
--- OUTSIDE RECORDS SUMMARY | 2025-05-11 10:14 | XMS_ITS | Encounter Summary ---
Author Organization [facility] Address [address] [place] [address] Care Team Providers Care Air Hammer Operator Name Role Phone Carmen Berkowitz MD Primary Care Provider Unavailable Encounter Details Date Type Department Care Team (Late st Contact Info) Description 08/18/2024 Scanned Document [facility] 80 [facility] [address] [place] [phone] Provider, Generic Social History Tobacco Use [...] Description 06/02/2025 8:00 AM EDT Clinical Support [facility] [address], [facility] [place] [phone] Rose Vera Au.D [address] [place] [address] documented as of this encounter Visit Diagnoses Not on filedocumented in this encounter Care Teams Air Hammer Operator Relationship Specialty Start Date End Date Carmen Berkowitz MD PCP - General Internal Medicine 01/07/24 documented as of this encounter
--- OUTSIDE RECORDS SUMMARY | 2025-05-11 10:14 | XMS_ITS ---
Author Name [facility] Organization Unknown Results Test Name/Text Value Interpretation Date Range Source VIT B12 SER MCNC 410.0 pg/mL Normal 04/24/2024 180 - 914 [facility] LDLc SerPl Calc-mCnc 99.0 mg/dL Normal 04/24/2024 50 - 13 0 [facility] HDLC SERPL-MCNC 51.0 mg/dL Normal 04/24/2024 35 - 88 [facility] CHOLEST SERPL-MCNC 176.0 mg/dL Normal 04/24/2024 0 - 200 [facility] TRIGL SERPL-MCNC 130.0 mg/dL Normal 04/24/2024 - 150 [facility] ALPHA 1 G/DL 0.3 Normal 04/29/2024 [facility] BETA % 11.9 Normal 04/29/2024 [facility] ALPHA 2 G/DL 0.8 Normal 04/29/2024 [facility] ALBUMIN % 53.6 Normal 04/29/2024 [facility] ALPHA 2 % 10.9 Normal 04/29/2024 [facility] GAMMA % 19.2 Normal 04/29/2024 [facility] TOTAL PROTEIN 7.3 Normal 04/29/2024 [facility] BETA G/DL 0.9 Normal 04/29/2024 [facility] ALBUMIN G/DL 3.9 Normal 04/29/2024 [facility] GAMMA G/DL 1.4 Normal 04/29/2024 [facility] ALPHA 1 % 4.4 Normal 04/29/2024 [facility] K/L FLC Ratio 1.39 Normal 04/29/2024 [facility] Free Lambda Light Chains 1.6 Normal 04/29/2024 [facility] Free [place] Light Chains 2.22 Above high normal 04/29/2024 [facility] IGM SER MCNC 112.0 mg/dL Normal 04/24/2024 45 - 281 [facility] IGA SERPL-MCNC 180.0 mg/dL Normal 04/24/2024 66 - 433 [facility] IGG SERPL-MCNC 1399.0 mg/dL Normal 04/24/2024 635 - 1741 [facility] NEUTROPHILS NFR BLD AUTO 46.8 % Normal 04/24/2024 44 - 74 [facility] NEUTROPHILS NO. BLD AUTO 3.6 K/uL Normal 04/24/2024 1.8 - 7.8 [facility] MCH RBC QN AUTO 27.4 pg Normal 04/24/2024 25 - 33 [facility] RDW RBC AUTO RTO 14.7 % Normal 04/24/2024 12.1 - 16.2 [facility] RBC NO. BLD AUTO 4.61 M/uL Normal 04/24/2024 4.2 - 5.4 [facility] DIFFERENTIAL TYPE AUTOMATED Normal 04/24/2024 C [facility] LYMPHOCYTES NFR BLD AUTO 45.3 % Normal 04/24/2024 20 - 48 [facility] HCT VFR BLD AUTO 37.4 % Normal 04/24/2024 37 - 47 [facility] MONOCYTES NFR BLD AUTO 6.2 % Normal 04/24/2024 2 - 12 [facility] WBC NO. BLD AUTO 7.7 K/uL Normal 04/24/2024 4 - 10.5 [facility] EOSINOPHIL NFR BLD AUTO 1.4 % Normal 04/24/2024 0 - 6 [facility] MCV RBC AUTO 81.3 fL Normal 04/24/2024 78 - 100 [facility] MG MCHC RBC AUTO MCNC 33.7 g/dL Normal 04/24/2024 32 - 36 [facility] PLATELET NO. BLD AUTO 299.0 K/uL Normal 04/24/2024 150 - 450 [facility] MONOCYTES NO. BLD AUTO 0.5 K/uL Normal 04/24/2024 0 - 0. 8 [facility] EOSINOPHIL NO. BLD AUTO 0.1 K/uL Normal 04/24/2024 0 - 0.5 [facility] BASOPHILS NFR BLD AUTO 0.3 % Normal 04/24/2024 0 - 2 [facility] BASOPHILS IN BLOOD BY AUTOMATED COUNT 0.0 K/uL Normal 04/24/2024 0 - 0.2 [facility] HGB BLD MCNC 12.6 g/dL Normal 04/24/2024 12.5 - 16 [facility] LYMPHOCYTES NO. BLD AUTO 3.5 K/uL Above high normal 04/24/2024 1 - 3.2 [facility] PMV BLD AUTO 8.2 fL Normal 04/24/2024 7.4 - 11.4 [facility] CALCIUM SERPL MCNC 8.9 mg/dL Normal 04/24/2024 8.4 - 10.2 [facility] SODIUM SERPL SCNC 138.0 mmol/L Normal 04/24/2024 135 - 14 5 [facility] ANION GAP SERPL SCNC 8.0 mmol/L Normal 04/24/2024 5 - 14 [facility] POTASSIUM SERPL SCNC 3.7 mmol/L Normal 04/24/2024 3.5 - 5 .1 [facility] GLUCOSE SERPL MCNC 85.0 mg/dL Normal 04/24/2024 70 - 199 [facility] ALBUMIN SERPL BCG MCNC 3.9 g/dL Normal 04/24/2024 3.5 - 5 [facility] HCO3 SER SCNC 26.0 mmol/L Normal 04/24/2024 24 - 32 [facility] AST SERPL CCNC 12.0 U/L Normal 04/24/2024 5 - 40 [facility] Glomerular filtration rate/1.73 sq M. predicted 111.0 Normal 04/24/2024 60 - [facility] ALT SERPL CCNC 7.0 U/L Normal 04/24/2024 7 - 52 [facility] CREAT SERPL MCNC 0.7 mg/dL Normal 04/24/2024 0.5 - 1 [facility] BUN SERPL MCNC 10.0 mg/dL Normal 04/24/2024 7 - 17 [facility] PROT SERPL MCNC 7.3 g/dL Normal 04/24/2024 6.4 - 8.5 [facility] ALP SERPL-CCNC 54.0 U/L Normal 04/24/2024 34 - 104 [facility] CHLORIDE SERPL SCNC 104.0 mmol/L Normal 04/24/2024 98 - 1 07 [facility] BILIRUB SERPL MCNC 0.3 mg/dL Normal 04/24/2024 0.3 - 1 [facility] ESR Bld Qn Photometric 42.0 mm/h Above high normal 4 0 - 20 [facility] 25(OH)D3+25(OH)D2 SerPl IA-mCnc 48.0 ng/mL Normal 04/24/2024 30 - 100 [facility] FERRITIN SERPL MCNC 20.0 ng/mL Normal 04/24/2024 10 - 120 [facility] CRP SERPL MCNC 1.7 mg/dL Above high normal 04/24/2024 - 0.9 [facility] History of Medication Use Medication Directions Dispensed Refills Start Date End Date Status EPINEPHrine (ADRENALIN) 1 mg/mL Solution injection Inject 0.3 mg under the skin. 5 active OMEprazole (PriLOSEC) 20 MG capsule TAKE 1 CAPSULE(20 MG) BY MOUTH TWICE DAILY BEFORE BREAKFAST AND DINNER 5 active indomethacin (INDOCIN) 25 MG capsule 5 active methylPREDNISolone acetate (DEPO-Medrol) injection 40 mg 5 025 completed indomethacin (INDOCIN) 25 mg capsule Take 2 capsules (50 mg total) by mouth 3 (three) times a day with meals. 5 active budesonide (PULMICORT) 0.5 mg/2 mL nebulizer solution Take 1 vial (0.5 mg total) by nebulization daily. 5 025 active methylPREDNISolone acetate (DEPO-Medrol) injection 80 mg 5 active levothyroxine (SYNTHROID, LEVOTHROID) 50 mcg tablet Take 1 tablet (50 mcg total) by mouth 1 (one) time each day before breakfast. 5 active doxycycline (VIBRAMYCIN) 100 MG capsule Take 1 capsule (100 mg total) by mouth 2 (two) times a day. 5 active fluticasone (FloNASE) 50 mcg/spray nasal spray 1 spray into each nostril daily. 5 active predniSONE (DELTASONE) 50 MG tablet Take 1 tablet (50 mg total) by mouth daily. With food. 5 active predniSONE (DELTASONE) 20 MG tablet Take 2 tablets (40 mg total) by mouth daily. Take in the morning with food. 5 active Azelastine-Fluticasone 137-50 MCG/ACT Suspension INSTILL 2 SPRAYS INTO EACH NOSTRIL TWICE DAILY FOR 30 DAYS 4 active doxycycline (MONODOX) 100 MG capsule Take 1 capsule (100 mg total) by mouth 2 (two) times a day. 4 active fluconazole (diFLUcan) 150 MG tablet Take 1 tablet (150 mg total) by mouth every third day (72 hrs). 4 active escitalopram (LEXAPRO) 10 mg tablet Take 1 tablet (10 mg total) by mouth 1 (one) time each day. 4 active Doxycycline Hyclate 100mg Capsule 4 active dexamethasone (DECADRON) injection 4 mg 4 mg, Intravenous, Once as needed, other, nausea, vomiting, Starting on 02/04/24 at 0839, For 1 dose, PACU/Phase 1Administer 2nd unless given in the OR if zofran is ineffective and patient continues to be symptomatic. 4 active dimenhyDRINATE (DRAMAMINE) injection 25 mg 25 mg, Intravenous, Once as needed, nausea, Nausea, vomiting, Starting on 02/04/24 at 0839, For 1 dose, PACU/Phase 1Administer 3rd unless given in the OR if zofran and decadron are ineffective and patient continues to be symptomatic. INTRAMUSCULAR: No dilution required INTRAVENOUS: Must dilute e 4 active HYDROmorphone (DILAUDID) injection 0.2 mg 0.2 mg, Intravenous, Every 15 min PRN, moderate pain (4-6), Starting on 02/04/24 at 0839, PACU/Phase 1FOR PACU USE ONLY. If unable to take by mouth. Do not exceed 2 mg. 4 active orphenadrine (NORFLEX) injection 30 mg 30 mg, Intravenous, Once as needed, muscle spasms, for musculoskeletal pain, to achieve pain scale less than or equal to 4, Starting on Sat02/04/24 at 0839, For 1 dose, PACU/Phase 1 4 active Ubrelvy 100 MG TABS TAKE 1 TABLET BY MOUTH DAILY NEEDED FOR MIGRAINE HEADACHE. MAY REPEAT DOSE IN 2 HOURS. DO NOT EXCEED 2 DOSES IN 24 HOURS 4 active Dymista 137mcg-50mcg/actuation Nasal [place] 4 active Lexapro 4 active escitalopram (LEXAPRO) 10 mg tablet Take 1 tab daily 3 active budesonide (PULMICORT) 0.5 mg/2 mL nebulizer solution ADD 1 VIAL(2 ML) TO BRIE MED NASAL AND RINSE DAILY 3 024 aborted budesonide (PULMICORT) 0.5 MG/2ML nebulizer solution ADD 1 VIAL(2 ML) TO BRIE MED NASAL AND RINSE DAILY 3 active budesonide (PULMICORT) 0.5 MG/2ML nebulizer solution ADD 1 VIAL(2 ML) TO BRIE MED NASAL AND RINSE DAILY 3 active Azelastine-Fluticasone 137-50 MCG/ACT SUSP spray/apply 1 spray in each nostril 2 (two) times a day. 3 active omeprazole (PriLOSEC) 20 MG capsule Take 1 capsule (20 mg total) by mouth 2 (two) times a day. 3 suspended omeprazole (PriLOSEC) 20 MG capsule Take 1 capsule (20 mg total) by mouth 2 (two) times a day. 3 active omeprazole (PriLOSEC) [address] capsule Take 1 capsule (20 mg total) by mouth 2 (two) times a day. 3 active cetirizine (ZyrTEC) 10 mg capsule Take 1 capsule (10 mg total) by mouth 1 (one) time each day. 6 active cetirizine (ZyrTEC) 10 mg capsule Take 1 capsule every day by oral route. 024 aborted lactobacillus acidoph-l.bulgar 100 million cell granules in packet Take 1 packet by mouth. 11/11/2 024 aborted traMADoL 25 mg tablet Take 50 mg by mout h every 6 (six) hours if needed (as needed). Max Daily Amount: 200 mg aborted Cetirizine HCl (ZyrTEC ALLERGY) 10 MG CAPS Take 1 capsule every day by oral route. active cholecalciferol (VITAMIN D3) 125 MCG (5000 UT) capsule active cholecalciferol, vitamin D3, 100 mcg (4,000 unit) tablet daily. activ e escitalopram (LEXAPRO) tablet 10 mg escitalopram 10 mg tablet TAKE 1 TABLET BY MOUTH EVERY DAY active infliximab (REMICADE IV) Inject into the vein. Every 6 wks active inFLIXimab (REMICADE IV) Inject into the vein. active levothyroxine (SYNTHROID, LEVOTHROID) 50 mcg tablet Take 1.5 tablets (75 mcg total) by mouth daily. active levothyroxine (SYNTHROID, LEVOTHROID) 75 mcg tablet Take 1 tablet (75 mcg total) by mouth 1 (one) time each day before breakfast. active levothyroxine (SYNTHROID, LEVOTHROID) 88 mcg tablet Take 1 tablet (88 mcg total) by mouth 1 (one) time each day before breakfast. active levothyroxine (SYNTHROID) tablet 50 mcg Take 1.5 tablets (75 mcg total) by mouth daily. suspended Lipitor 10 MG tablet act maria r loratadine (Claritin) 10 MG tablet Take 1 tablet (10 mg total) by mouth daily. active loratadine (CLARITIN) 10 mg tablet Take 1 tablet (10 mg total) by mouth 1 (one) time each day. active magnesium oxide (MAG-OX) 400 MG tablet daily. ac tive OMEprazole (PriLOSEC OTC) 20 MG tablet active Probiotic Product (Misc Intestinal Elyse Regulat) Cap Take by mouth daily. active Probiotic Product (Misc Intestinal Elyse Regulat) CAPS Take by mouth. active Riboflavin 400 MG Tab every 24 hours. active ubrogepant (Ubrelvy) 100 mg tablet Take 1 tablet (100 mg total) by mouth 1 (one) time. active Unithroid 75 MCG tablet active Allergies Allergen Reaction Severity Comment Documented Date Source Status [facility] EXTRACT [facility]ES [facility] LATEX OTHER (SEE COMMENTS) 02/24/2021 [facility] active ASCORBIC ACID OTHER (SEE COMMENTS) Throat swelling 08/05/2017 [facility] active CLINDAMYCIN/JESSICA COMYCIN OTHER (SEE COMMENTS) 06/26/2016 [facility] active OTHER OTHER (SEE COMMENTS) 10/19/2014 [facility] active PENICILLINS UNKNOWN/PATIENT AND FAMILY UNABLE TO DEFINE 04/06/2011 [facility] active ASCORBATE UNKNOWN/PATIENT AND FAMILY UNABLE TO DEFINE Throat swelling [facility] CODEINE PALPITATIONS Tachycardia , hypotension, fainted,Causes elevated HR and Low Blood pressure, pt also reports that it made her slow to wake up from anesthesia [facility] PENICILLIN ENS_PODCR CT Problems Problem Status Onset Date Problem Type Date of Resolution Source Trochanteric bursitis of left hip active 6 ProblemAct [facility] contractions active 7 ProblemAct [facility] Iron deficiency active 1 ProblemAct [facility] GERD (gastroesophageal reflux disease) active 2013-03-02 5 ProblemAct [facility] Class 3 drug-induced obesity with serious comorbidity and body mass index (BMI) of 45.0 to 49.9 in adult active 3 ProblemAct [facility] Heart murmur active 3 ProblemAct [facility] Malaise and fatigue active 2016-06-02 3 ProblemAct [facility] Anxiety active 3 ProblemAct [facility] History of spinal fusion active 2016-09-03 0 ProblemAct [facility] Breech presentation active 2013-03-02 5 ProblemAct [facility] Acne active 2016-09-03 0 ProblemAct [facility] First trimester screening active 2013-01-31 7 ProblemAct [facility] Sciatica active 2013-03-02 5 ProblemAct [facility] Hyperprolactinemia active 2016-09-03 0 ProblemAct [facility] Polycystic ovary syndrome active 2016-09-03 0 ProblemAct [facility] Reactive hypoglycemia active 2016-09-03 0 ProblemAct [facility] Vitamin D deficiency active 2016-09-03 0 ProblemAct [facility] Ankylosing spondylitis active 9 ProblemAct [facility] Hypothyroidism active 9 ProblemAct [facility] Alopecia active 2016-09-03 0 ProblemAct [facility] Anemia active 2022-04-02 8 ProblemAct [facility] Arthralgia of right acromioclavicular joint active 7 ProblemAct [facility] Screening for human papillomavirus (HPV) active 2012-12-01 8 ProblemAct [facility] Prediabetes active 2016-09-03 0 ProblemAct [facility] Hyperlipidemia active 2016-09-03 0 ProblemAct [facility] Atherosclerosis active 3 ProblemAct [facility] Need for Tdap vaccination active 7 ProblemAct [facility] Migraine active 3 ProblemAct [facility] Hirsutism active 2016-09-03 0 ProblemAct [facility] Calcific tendonitis active 7 ProblemAct [facility] Abnormal weight gain active 2016-06-02 3 ProblemAct [facility] Incomplete tear of right rotator cuff active 2018-10-04 1 ProblemAct [facility] Non-toxic uninodular goiter active 2016-09-03 0 ProblemAct [facility] Iron deficiency anemia active 3 ProblemAct [facility] Chronic sinusitis active 2025-01-31 9 ProblemAct [facility] PCOS (polycystic ovarian syndrome) active 2025-01-31 9 ProblemAct [facility] Hypothyroidism active 3 ProblemAct [facility] Infliximab (Remicade) long-term use active EncounterDiagnosisAct [facility] Ankylosing spondylitis (CMS/HCC V24, CMS/HCC V28) active 1 ProblemAct [facility] Other hyperlipidemia active 3 ProblemAct [facility] Hypoglycemia active 2025-01-31 9 ProblemAct [facility] Ankylosing spondylitis of lumbosacral region active 1 ProblemAct [facility] Ankylosing spondylitis of lumbosacral region (HCC) active EncounterDiagnosisAct [facility] Contracture of tendo achilles active 2023-09-02 2 ProblemAct [facility] Pain in LEFT ankle and joints of foot / sinus tarsi syndrome active 3 EncounterDiagnosisAct [facility]OD[facility] Peroneal tendinitis, left leg active 3 EncounterDiagnosisAct [facility] Pain in left foot active 3 EncounterDiagnosisAct [facility] Achilles tendinitis, left leg active 3 EncounterDiagnosisAct [facility]NS_[facility]OD[facility] Calcaneal spur, left foot active 2023-09-02 2 ProblemAct [facility] Disruption of external operation (surgical) wound, Dehiscence, not elsewhere classified, subsequent encounter active 2024-03-03 6 ProblemAct [facility] Aftercare following orthopedic procedure active 7 ProblemAct [facility] Immunizations Vaccine Date Source Lot Number Status Influenza trivalent, 0.5mL, preservative free (Fluarix; FluLaval; Fluzone) ages 6mo and older (Afluria) 3 years and older 05/19/2024 [id number] completed Influenza Quadravalent, MDCK , 0.5ml, preservative free (Flucelvax) 6mo and older 05/17/2023 [facility] [id number] completed Tdap Tetanus diptheria acell ular pertussis (Boostrix; Adacel) 7yo and older 05/17/2023 [facility] [id number] completed Influenza, Unspecified 05/27/2021 [facility] co mpleted Influenza, Unspecified 05/27/2021 [facility] co mpleted Influenza, Unspecified 05/27/2021 [facility] co mpleted Influenza, Unspecified 05/27/2021 [facility] co mpleted Influenza (AFLURIA/FLUZONE) Inactivated/Split Quadrivalent with Preservative IM 05/03/2016 [facility] completed Influenza (AFLURIA/FLUZONE) Inactivated/Split Quadrivalent with Preservative IM 05/03/2016 [facility] completed Influenza (AFLURIA/FLUZONE) Inactivated/Split Quadrivalent with Preservative IM 05/03/2016 [facility] completed Influenza (AFLURIA/FLUZONE) Inactivated/Split Quadrivalent with Preservative IM 05/03/2016 [facility] completed Tdap 06/08/2013 [facility] [id number] completed Tdap 06/08/2013 [facility] [id number] completed Tdap 06/08/2013 [facility] [id number] completed Tdap 06/08/2013 [facility] [id number] completed H1N1 Inj 06/02/2010 [facility] completed H1N1 Inj 06/02/2010 [facility] completed H1N1 Inj 06/02/2010 [facility] completed H1N1 Inj 06/02/2010 [facility] completed Encounters Encounter Type Encounter Reason Primary Diagnosis Location Date Ambulatory Unspecified abdominal pain Unspecified abdominal pain [facility] 05/07/2025 Ambulatory Heartburn Heartburn [facility] 04/27/2025 Ambulatory [facility] 03/17/2025 Ambulatory Nasal Congestion Nasal Congestion [facility] 02/08/2025 Ambulatory Chronic sinusitis, unspecified Chronic sinusitis, unspecified [facility] 12/31/2024 Ambulatory [facility] 12/11/2024 Ambulatory [facility] 11/06/2024 Ambulatory Nasal Congestion Nasal Congestion [facility] 09/29/2024 Ambulatory Sinus Problem Sinus Problem nCino 09/24/2024 Ambulatory Herpes Zoster Herpes [facility]oster [facility] 08/18/2024 Ambulatory Nasal Congestion Nasal Congestion [facility] 08/16/2024 Ambulatory Ankylosing spondylitis of unspecified sites in spine Ankylosing spondylitis of unspecified sites in spine [facility] 07/28/2024 Ambulatory [facility] 07/13/2024 Ambulatory Ankylosing spondylitis of lumbosacral region Ankylosing spondylitis of lumbosacral region [facility] 06/09/2024 Ambulatory Ankylosing spondylitis [facility] lumbosacral [facility] Ambulatory Ankylosing spondylitis of lumbosacral region Ankylosing spondylitis of lumbosacral region [facility] 04/24/2024 Ambulatory Consult Consult [facility] 04/06/2024 Ambulatory Ankylosing spondylitis of lumbosacral region Ankylosing spondylitis of lumbosacral region [facility] 03/16/2024 Ambulatory [facility] 03/13/2024 Ambulatory Calcaneal spur, left foot Calcaneal spur, left foot [facility] 02/04/2024 Ambulatory Ankylosing spondylitis of lumbosacral region Ankylosing spondylitis of lumbosacral region [facility] 01/23/2024 Ambulatory [facility] 12/11/2023 Ambulatory Ankylosing spondylitis of lumbosacral region Ankylosing spondylitis of lumbosacral region [facility] 12/09/2023 Ambulatory Ankylosing spondylitis of lumbosacral region Ankylosing spondylitis of lumbosacral region [facility] 10/30/2023 Ambulatory [facility]23 Ambulatory Ankylosing spondylitis of lumbosacral region Ankylosing spondylitis of lumbosacral region [facility] 09/04/2023 Ambulatory Ankylosing spondylitis of lumbosacral region Ankylosing spondylitis of lumbosacral region [facility] 07/23/2023 Ambulatory Ankylosing spondylitis of lumbosacral region Ankylosing spondylitis of lumbosacral region [facility] 06/04/2023 Ambulatory Ankylosing spondylitis of lumbosacral region Ankylosing spondylitis of lumbosacral region [facility] 04/16/2023 Ambulatory [facility] 06/26/2022 Ambulatory [facility] 12/26/2021 Ambulatory [facility] 07/06/2021 Care Team Organization Name Specialty Phone Email Start Date End Da te [facility] 07[facility]13/2024 [facility] 07[facility]11/2024 [facility] 04/07/2024 [facility] Primary Care 01/24/2024 [facility] Primary [facility] 01/07/2024 [facility] 09/22/2023 [facility] 09/05/2023 [facility] DUSTIN SOMERSET Primary Care 09/04/2023 024 [facility] 06/10/2023 12/01/2024 [facility] 06/10/2023 06/10/2023 [facility] 04/17/2023 03/16/2025 [facility] 04/16/2023 04/16/2023 [facility] Cate Cardoza Primary Care
--- OUTSIDE RECORDS SUMMARY | 2025-05-11 10:14 | XMS_ITS | Encounter Summary ---
Author Organization [facility] Address [address] [place] [address] Care Team Providers Care It Security Architect Name Role Phone Carmen Berkowitz MD Primary Care Provider Unavailable Encounter Details Date Type Department Care Team (Late st Contact Info) Description 08/18/2024 Scanned Document [facility] [address] [facility] [address] [place] [phone] Provider, Generic Social History Tobacco Use [...] Description 06/02/2025 8:00 AM EDT Clinical Support [facility] [address], [facility] [place] [phone] Rose Vera Au.D [address] [place] [address] documented as of this encounter Visit Diagnoses Not on filedocumented in this encounter Care Teams It Security Architect Relationship Specialty Start Date End Date Carmen Berkowitz MD PCP - General Internal Medicine 01/07/24 documented as of this encounter
== END 2025-05-11 09:45 | disposition home or self-care (01) ==
LOC: HO.HSM 08:58
PROVIDERS: PCP Family Medicine; Visit Provider Nurse Practitioner
DX: G43.909 Migraine, unspecified, not intractable, without status migrainosus (principal); G43.E09 Chronic migraine with aura, not intractable, without status migrainosus
CPT/HCPCS: 99203

== ENCOUNTER 2025-06-08 12:16 | Outpatient (AMB) | payer OTHER, SELFPAY ==
--- NOTE | 2025-06-08 12:30 | A.OFFVIS_ITS ---
Vital Signs 06/08/25 12:31 BP 124/78 Blood Pressure Location Rt brachial Position Sitting Respiration 16 Pulse 96 Pulse Source Pulse Oximeter Pulse Oximetry (%) 99 Oxygen Delivery Method Room Air Intake Visit Reasons: Botox injection Allergies codeine Allergy (Unknown, Verified 05/11/25 09:04) Hypertension Penicillins Allergy (Unknown, Verified 05/11/25 09:04) Anaphylaxis HPI Comments Details: Roxanne is a 44-year-old female patient with a past medical history of autoimmune disease and migraine who presents to the clinic today for Botox therapy. She has no specific concerns for today. Per last documented HPI: She originally started treatment for her migraine while in [place] and was placed on Botox therapy for prevention. This was largely due to her auto immune disease and hesitancy to trial antiepileptics or beta blockers with concurrent use of Remicade. She also has a history of asthma causing further hesitance for a trial of beta-blockers in the past. She has however trailed amitriptyline which caused excessive somnolence and did not work to prevent her migraines. Prior to initiation of Botox therapy she was having severe headaches accompanied by nausea and vomiting, severe light and sound sensitivity, and general inability to perform her ADLS as she notes that she was incompacitated . These migraine headaches were occuring on average 18 days per month lasting several hours. After initiation of Botox therapy her migraines have reduced both in frequency and duration. She now has a migraine headache on average 4 times per month. These migraines can last up to 4-6hrs but with use of Ubrelvy 100mg she has migraine resolution within a half hour. She also experiences less nausea, no vomiting, and less profound light and sound sensitivity now that she is on the Botox. She does sometimes have a visual aura at the start of her migraines. She does note some specific triggers for her migraines which include bright light as well as stress. Social: Lives home with belinda and 2 kids (14 and 11) Currently not working ETOH: None [place] use: None Caffine: Rare Tobacco: No Past medication trials: Sumatriptan oral- No improvement Sumatriptan nasal- No improvement Rizatriptan- No improvement Naratriptan- No improvement Nurtec- No improvement Ubrelvy- Works well Beta madyson- Contraindicated with history of asthma Amitriptyline- No improvement Toipramate- Not trailed d/t history of autoimmune disease as well as significant brain fog during her migraines Prior workup: Pt believes that her last MRI brain was performed in 2014 in [place]. Believes that her MRI was normal at that time. [facility] Medical History (Updated 05/11/25 @ 10:10 by Yas Madden CNP) Obesity Migraine Review of Systems Const All systems reviewed & are unremarkable except as noted in HPI and below ENT Reports Normal hearing present Neuro Reports Normal hearing present Physical Exam Vital Signs: Last Vital Signs Pulse 96 06/08/25 12:31 Resp 16 06/08/25 12:31 BP 124/78 06/08/25 12:31 Pulse Ox 99 06/08/25 12:31 Oxygen Delivery Method Room Air 06/08/25 12:31 Const General: cooperative, healthy appearing, comfortable and no acute distress Nutritional Appearance: well nourished Orientation/consciousness: patient oriented x3 Limitations: no limitations HEENT Head: Yes normal to inspection and Yes normocephalic Eyes General: appearance normal, both eyes and all related structures Visual Alejandro: normal visual alejandro by confrontation Alignment and Position: alignment normal Periorbital: periorbital findings normal Eyelids: Yes eyelids normal Conjunctivae: conjunctivae normal Sclerae: sclerae normal Neuro General: patient oriented x3 and deep tendon reflexes 2+ bilaterally Cranial nerves: Yes CN's II-XII intact bilaterally, Yes Facial sensation intact/muscles of mastication intact and Yes Normal hearing present Cognition (Neuro): normal cognition Gait exam (Neuro): Normal gait present Motor exam (neuro): 5/5 motor strength present throughout and no tremor noted Sensory Exam: double simultaneous stimulation for sensation normal Romberg Test: Negative Pupils: Normal pupillary reactivity/response: bilateral Psych Appearance: grossly normal Mental Status: mental status grossly normal Speech and movement: Normal speech and movement present and Clear speech present Affect: normal affect Attitude: cooperative Thought process: Normal thought process present Thought content: Normal thought content present Insight: Good insight present (Psych) Judgement: Good judgement present (Psych) Office Procedures Botulinum toxin Injection Details: Procedure: Botox therapy for Chronic Migraine Laterally: Bilateral Indications: Chronic Migraine Medications: Botox 155units How the med was supplied: Patient supplied Timeout performed before procedure, patient identified with full name and date of . Risks and benefits of procedure reviewed, as well as site verified, sonsent signed, allergies reviewed, and medication reconsilliatino reviewed/completed. Following universal hygiene protocol and PREEMPT protocol, Botox 200unit vial was reconstituted with 4cc normal saline for a final concentration of 5units/0.1cc. The areas of injection were cleansed with alcohol. A 30g 0.5 needle was used to administer the injections as below. Procerus: 5units midline Network Development Coordinator: 5units left and 5units right Frontalis: 10units left and 10units right Temporalis: 20units left and 20units right Occipitalis:15units left and 15units right Cervical paraspinal 10units left and 10units right Trapezius 15units left and 15units right No noted paresthesias during injection 155units of Botox used and 45units wasted per PREEMPT protocol Complications: None Patient was observed for 15 minutes after the procedure and discharged home with instructions to apply ice to their head as needed. 45849 - Migraine Procedure code (CPT) selection complete Office Meds onabotulinumtoxinA 200 unit solution for injection Performing Provider: Yas Madden CNP Performing Location: [facility] [place] [facility] Neurology and [facility] Administered by: Yas Madden CNP on 06/08/25 13:23 Dose Route Admin Location Dispensed Lot Number Expiration Date [facility] Vest Front Presser 155 unit IM 200 units [id number] 12/01/27 8711-0830-64 [employer] AN/BOTOX Total Dispensed Waste 200 units 22.5 % Assessment & Plan Assessment & Plan (1) Chronic migraine with aura without status migrainosus, not intractable: Comment: Chronic migraine very well controlled with Botox therapy as well as ubrelvy 100mg as needed for acute therapy. Will continue this regimen and see her back in the office later this month for her Botox procedure once PA has been re- established with [facility]. Code(s): G43.E09 - Chronic migraine with aura, not intractable, without status migrainosus Category: Medical Plan Roxanne is a 44-year-old female patient with a past medical history of autoimmune disease and migraine who presents to the clinic today for Botox therapy. Her procedure went well today without any complications. We will continue Botox therapy every 12 weeks per migraine protocol and she will continue Ubrelvy 100 mg for acute therapy which has been working well for her. -return to the clinic in 12 weeks for repeat Botox therapy for chronic migraine -continue Ubrelvy 100 mg for acute therapy Orders: Orders AMB Botulinum toxin Injection - Patient Supplied N/C Today G43.E09 - Chronic migraine with aura, not intractable, without status migrainosus Coding Level of Care Code Est Pt Level 1 (98226) Diagnoses Chronic migraine with aura without status migrainosus, not intractable G43.E09 CPT Codes Botox Injection - Botox 3: 72491 - Migraine ([id number])
[2025-06-08 12:31] VITALS: BP 124/78; PULSE 96; RESP 16; O2SAT 99
--- OUTSIDE RECORDS SUMMARY | 2025-06-08 15:13 | XMS_ITS | Encounter Summary ---
Author Organization [facility] Address [address] [place] [address] Care Team Providers Care Product Safety Professional Name Role Phone Carmen Berkowitz MD Primary Care Provider Unavailable Encounter Details Date Type Department Care Team (Late st Contact Info) Description 09/24/2024 Scanned Document [address] [place] [id number] Provider, Generic Social History Tobacco Use Types Packs/Day Years Used Date Smoking Tobacco: Never Smokeless Tobacco: Never Comments No Sex and Gender Information Value Date Recorded Sex Assigned at Female 01/07/2024 11:30 AM EDT Legal Sex Female 9:33 AM EDT Gender Identity Female 01/07/2024 11:30 AM EDT Sexual Orientation Not on file documented as of this encounter Plan of Treatment Not on file documented as of this encounter Visit Diagnoses Not on filedocumented in this encounter Care Teams Product Safety Professional Relationship Specialty Start Date End Date Carmen Berkowitz MD PCP - General Internal Medicine 01/07/24 documented as of this encounter
--- OUTSIDE RECORDS SUMMARY | 2025-06-08 15:13 | XMS_ITS | Encounter Summary ---
Author Organization [facility] [place] [facility] Address [address] [place] [address] Care Team Providers Care Multiple Games Dealer Name Role Phone Carmen Berkowitz MD Primary Care Provider Unavailable Encounter Details Date Type Department Care Team (Late st Contact Info) Description 08/18/2024 Scanned Document [facility] [address] [facility] [address] [place] [phone] Provider, Generic Social History Tobacco Use [...] on filedocumented in this encounter Care Teams Multiple Games Dealer Relationship Specialty Start Date End Date Carmen Berkowitz MD PCP - General Internal Medicine 01/07/24 documented as of this encounter
--- OUTSIDE RECORDS SUMMARY | 2025-06-08 15:13 | XMS_ITS | Patient Health Record ---
Author Organization [facility] Address [address] [facility] [address] Care Team Providers Care Sound System Installer Name Role Phone Ever Sales Primary Care Provider [phone] Allergies Allergen (clinical drug ingredient) Drug/Non Drug Allergy documented on EMR Reaction Allergy Type Onset Date Status codeine Codeine Sulfate tachycardia Drug Allergy Active acetaminophen / hydrocodone Hydrocodone-Acetami nophen tachycardia Drug Allergy Active Morphine Sulfate tachycardia Drug Allergy Active penicillin [...] W/U Status Risk Notes Problem Allergic rhinitis (83459076) Allergic rhinitis, cause unspecified (477.9) Active confirmed ears do better when pollen counts are lower Problem Dysfunction of eustachian tube (12818727) Dysfunction of Eustachian tube (381.81) Active confirmed bilateral Problem Disorder of ear (90099519) Other disorders of ear (388.8) Active confirmed bilateral ear fullness, probably due to ear fullness Plan Of Treatment No Information Insurance Providers Payer Name Payer Address Payer Phone Subscriber Number Group Number Insured Name Patient Relationship to Insured Coverage Start Date Coverage End Date [employer] [address] YOHAN BOLANOS [id number] Rosalino Renteria Spouse - patient is the spouse of the insured Medical (General) History Medical History History ICD Code allergies asthma gastroesophageal reflux disease (GERD) Surgical History Surgery Date(Month/Year) shoulder arthroscopy left anterior approach cervical fusion/l aminectomy
--- OUTSIDE RECORDS SUMMARY | 2025-06-08 15:13 | XMS_ITS | Encounter Summary ---
Author Organization [facility] Address [address] [place] [address] Care Team Providers Care Judo Instructor Name Role Phone Carmen Berkowitz MD Primary Care Provider Unavailable Encounter Details Date Type Department Care Team (Late st Contact Info) Description 08/18/2024 Scanned Document [facility] 80 [facility] [address] [place] [phone] Provider, Generic Social History Tobacco Use [...] on filedocumented in this encounter Care Teams Judo Instructor Relationship Specialty Start Date End Date Carmen Berkowitz MD PCP - General Internal Medicine 01/07/24 documented as of this encounter
--- OUTSIDE RECORDS SUMMARY | 2025-06-08 15:13 | XMS_ITS | Clinical Summary ---
Author Organization [facility] Address [address] [place] [address] Phone Care Team Providers Care Mat Cleaning Machine Operator Name Role Phone Carmen Berkowitz MD [...] (100 mg total) by mouth 1 (one) time each day if needed. Active atorvastatin (LIPITOR) 10 mg tablet TAKE [...] each day. 90 tablet 1 5 Active sodium chloride 0.9 % parenteral solution 250 mL with inFLIXimab-axxq 100 mg recon soln Infuse into a venous catheter. Q 7 weeks Active infliximab-dyyb (INFLECTRA IV) Infuse into a venous catheter. Q 7 weeks 05/24/20 25 Discontinue d(Discontin ued by another clinician) Hospital, Clinic, or Other Facility Administered Medication Ordered Dose Route Frequency Start Date End Date Status methylPREDNISolone acetate (DEPO-Medrol) injection 40 mgIndications:Ankylosing spondylitis, unspecified site of spine ([facility] V24, [facility] V28) 40 mg IM Once 05/24/2025 05/24/2025 Ended Active Problems Problem Noted Date Diagnosed Date Chronic sinusitis 02/18/2025 Hypoglycemia 02/18/2025 PCOS (polycystic ovarian syndrome) 02/18/2025 Migraine 08/04/2024 Iron deficiency anemia 08/04/2024 Hypothyroidism 08/04/2024 Anxiety 08/04/2024 Other hyperlipidemia 08/04/2024 Atherosclerosis 08/04/2024 Class 3 drug-induced obesity with serious comorbidity and body mass index (BMI) of 45.0 to 49.9 in adult ([facility] V24, [facility] V28) 08/04/2024 Heart murmur 08/04/2024 Ankylosing spondylitis ([facility] V24, [facility] V28 ) 04/02/2023 Overview (11/05/2023): Last Assessment & Plan: Her coronary artery calcium score was 0. It does not appear that her ankylosing spondylitis has affected her heart and any quantifiable weight. Nonetheless we will continue to monitor clinically. Encounters Date Type Department Care Team Description 05/24/2025 2:00 PM EDT Office Visit Rheumatology - [place] [address] [place] [phone] Lucas Patterson MD Infliximab (Remicade) long-term use (Primary Dx); Elevated C-reactive protein (CRP); Ankylosing spondylitis, unspecified site of spine ([facility] V24, [facility] V28) 04/02/2025 Telephone Rheumatology [facility] [address] [place] [phone] Jacinta Kumar MA 03/22/2025 Telephone Rheumatology - [place] [address] [place] [phone] Bo Velazquez MA 03/17/2025 11:30 AM EDT Office Visit Rheumatology [facility] [address] [place] [phone] Lucas Patterson MD Ankylosing spondylitis of multiple sites in spine ([facility] V24, [facility] V28) (Primary Dx); Infliximab (Remicade) long-term use; Elevated C-reactive protein (CRP) 03/16/2025 Telephone Rheumatology [facility] [address] [place] [phone] Marcos Daigle RN from Last 3 Months Immunizations Immunization Administration [...] CALCANEAL SPUR; Surgeon: Petey Padilla DPM; Location: [facility]; Service: Podiatry; Laterality: Left; ACHILLES TENDON SURGERY 02/04/2024 Left PROCEDURE:ACHILLES TENDON SURGERY;COMMENT:Procedure: ACHILLES TENDON DETACHMENT AND REATTCHMENT; Surgeon: Petey Padilla DPM; Location: [facility]; Service: Podiatry; Laterality: Left; OTHER SURGICAL HISTORY PROCEDURE: [place] HYSTEROSCOPY ENDOMETRIAL ABLATION; COMMENT: October 2022 OTHER SURGICAL HISTORY PROCEDURE: HISTORY OTHER; COMMENT: history of cervical spine surgery - 2013 OTHER SURGICAL HISTORY PROCEDURE: HISTORY OTHER; COMMENT: bilateral shoulder arthroscopies (2017 - R), (2003 - L) OTHER SURGICAL HISTORY PROCEDURE: HISTORY OTHER; COMMENT: 2014 - deviated septum Medical History Medical History Date Comments Ankylosing spondylitis of si te in spine ([facility] V24, [facility] V28) DX:Ankylosing spondylitis o f site in spine ([facility]) Anxiety DX:Anxiety Ankylosing spondylitis of yeimi mbosacral region ([facility] V24, [facility] V28) 04/02/2023 DX:Ankylosing spondy litis of lumbosacral region ([facility]) Migraine headache DX:Migraine he adache GERD [...] ed Within the last 3 months, ho musa many times did you visit the emergency [...] for your loved ones. For example, child nurse or elderly care for an older adult? [...] Date Recorded What is your living situation? Unrecognized valu e 02/18/2025 Comments No Sex and Gender Information Value Date Recorded Sex Assigned at Not on file Legal Sex Female 8:06 PM EST Gender Identity Not on file Sexual Orientation Not on file Obstetrics History Last Filed Vital Signs Vital Sign Reading Time Taken Comments Blood Pressure 118/70 05/24/2025 1:58 PM EDT Pulse 87 05/24/2025 1:58 PM EDT Temperature 36.7 C (98 F) 02/18/2025 9:56 AM EDT Respiratory Rate 14 02/18/2025 9:56 AM EDT Oxygen Saturation 98% 05/24/2025 1:58 PM EDT Inhaled Oxygen Concentration - - Weight 122 kg (269 lb) 05/24/2025 1:58 PM EDT Height 157.5 cm (5' 2 ) 05/24/2025 1:58 PM EDT Body Mass Index 49.2 05/24/2025 1:58 PM EDT Plan of Treatment Upcoming Encounters Date Type Department Care Team (Late st Contact Info) Description 08/20/2025 9:30 AM EST Office Visit Adult Medicine [address] [phone] Carmen Berkowitz MD [address] [place] [address] 11/22/2025 11:00 AM EDT Office Visit Rheumatology [facility] [address] [place] [phone] Lucas Patterson MD [address] [place], [place] [phone] 02/23/2026 12:00 PM EDT Office Visit Adult Medicine [address] [phone] Carmen Berkowitz MD [address] [place], [place] Health Maintenance Due Date Last Done Comments Hepatitis B Vaccines (1 of 3 - 19+ 3-dose series) 2001 HPV Vaccines (1 - 3-dose SCDM series) 2009 HIV Screening 09/26/2023 Breast Cancer Screening 07/09/2024 07/09/2022 Influenza Vaccine (#1) 2025 , 05/17/2023, 05/27/2021, Additional history exists Social Influencers of Health Screening 02/18/2026 02/18/2025 Cervical Cancer Screening: Pap Smear 07/03/2026 07/03/2023 Cholesterol Screening (Lipid Panel) 04/24/2029 04/24/2024, 04/24/2024, 12/02/2023 DTaP,Tdap,and Td Vaccines (3 - Td or Tdap) 05/17/2033 05/17/2023, 06/08/2013 RSV Immunization Adult Patients (1 - 1-dose 75+ series) 2057 Hepatitis C Screening Completed 04/16/2023 COVID-19 Vaccine Completed 05/19/2024, 06/07/2023 Depression Screening Completed 02/11/2025 HIB Vaccines Aged [...] this topic Medical Devices Implanted Type Area Manager Management Device Identifier Shelf Expiration Date Model / Serial / Lot [place] Knotless [place] Sgl 3.9mm Stry-Sprt [id number] Implanted:Qty: 2 on 02/04/2024 by Petey Padilla DPM Left: Foot [facility] 09/09/2025 [id number] / [id number] Citrefix Implant Implanted:Qty: 1 on 02/04/2024 by Petey Padilla DPM Left: Foot [employer] 04/26/2025 REF # [id number] Description:#04.5X24MM XPRES S SYSTEM Cit[employer] Implant Implanted:Qty: 1 on 02/04/2024 by Petey Padilla DPM Left: Foot [employer] 04/26/2025 REF # [id number] Description:04.5 X 24MM Procedures Procedure Name Priority Date/Time Associated Diagnosis Comments CBC WITH AUTO DIFFERENTIAL Routine 05/24/2025 2:32 PM EDT Infliximab (Remicade) long-term use Elevated C-reactive protein (CRP) CBC AND DIFFERENTIAL Routine 05/24/2025 2:32 PM EDT Infliximab (Remicade) long-term use Elevated C-reactive protein (CRP) SEDIMENTATION RATE Routine 05/24/2025 2: 32 PM EDT Infliximab (Remicade) long-term use Elevated C-reactive protein (CRP) C-REACTIVE PROTEIN Routine 05/24/2025 2: 32 PM EDT Infliximab (Remicade) long-term use Elevated C-reactive protein (CRP) LIPID PANEL Routine 12/02/2023 PAP SMEAR Routine 07/03/2023 HEPATITIS C SCREENING Routine 04/16/2023 from Last 3 Months or Most Recently Relevant to Health Maintenance Results * (ABNORMAL) CBC auto differential (05/24/2025 2:32 PM EDT) WBC 11.3(H) 4.0 - 10.5 K/mcL LAB HEMETOLOGY METHOD 05/24/2025 2:57 PM EDT [facility] RBC 4.72 4.20 - 5.40 M/mcL LAB HEMETOLOGY METHOD 05/24/2025 2:57 PM EDT [facility] Hemoglobin 12.8 12.5 - 16.0 g/dL LAB HEMETOLOGY METHOD 05/24/2025 2:57 PM EDT [facility] Hematocrit 37.5 37.0 - 47.0 % LAB HEMETOLOGY METHOD 05/24/2025 2:57 PM EDT [facility] MCV 79.5 78.0 - 100.0 FL LAB HEMETOLOGY METHOD 05/24/2025 2:57 PM EDT [facility] MCH 27.1 25.0 - 33.0 pcg LAB HEMETOLOGY METHOD 05/24/2025 2:57 PM EDT [facility] MCHC 34.1 32.0 - 36.0 g/dL LAB HEMETOLOGY METHOD 05/24/2025 2:57 PM EDT [facility] RDW 14.6 12.1 - 16.2 % LAB HEMETOLOGY METHOD 05/24/2025 2:57 PM EDT [facility] Platelets 355 150 - 450 K/mcL LAB HEMETOLOGY METHOD 05/24/2025 2:57 PM EDT [facility] MPV 7.5 7.4 - 11.4 FL LAB HEMETOLOGY METHOD 05/24/2025 2:57 PM EDT [facility] Neutrophils Relative 53.7 44.0 - 74.0 % LAB HEMETOLOGY METHOD 05/24/2025 2:57 PM EDT [facility] Lymphocytes Relative 41.0 20.0 - 48.0 % LAB HEMETOLOGY METHOD 05/24/2025 2:57 PM EDT [facility] Monocytes Relative 4.4 2.0 - 12.0 % LAB HEMETOLOGY METHOD 05/24/2025 2:57 PM EDT [facility] Eosinophils Relative 0.6 0.0 - 6.0 % LAB HEMETOLOGY METHOD 05/24/2025 2:57 PM EDT [facility] Basophils Relative 0.3 0.0 - 2.0 % LAB HEMETOLOGY METHOD 05/24/2025 2:57 PM EDT [facility] Neutrophils Absolute 6.00 1.80 - 7.80 K/mcL LAB HEMETOLOGY METHOD 05/24/2025 2:57 PM EDT [facility] Lymphocytes Absolute 4.60(H) 1.00 - 3.20 K/mcL LAB HEMETOLOGY METHOD 05/24/2025 2:57 PM EDT [facility] Monocytes Absolute 0.50 0.00 - 0.80 K/mcL LAB HEMETOLOGY METHOD 05/24/2025 2:57 PM EDT [facility] Eosinophils Absolute 0.10 0.00 - 0.50 K/mcL LAB HEMETOLOGY METHOD 05/24/2025 2:57 PM EDT [facility] Basophils Absolute 0.00 0.00 - 0.20 K/mcL LAB HEMETOLOGY METHOD 05/24/2025 2:57 PM EDT [facility] Blood Venous blood specimen / Unknown Venipuncture / Unknown 05/24/2025 2:32 PM EDT 05/24/2025 2:43 PM EDT us Lucas Patterson MD LAB BLOOD ORDERABLES Final Resul t [facility] [address] [place] [address], [place] [phone] * (ABNORMAL) Sedimentation rate (05/24/2025 2:32 PM EDT) [facility] Sed Rate 46(H) 0 - 20 mm/hr LAB HEMETOLOGY METHOD 05/24/2025 3:39 PM EDT [facility] Blood Venous blood specimen / Unknown Venipuncture / Unknown 05/24/2025 2:32 PM EDT 05/24/2025 2:43 PM EDT us Lucas Patterson MD LAB BLOOD ORDERABLES Final Resul t Performing Organization Address [facility]/ZIP Co de Phone Number [facility] [address] [place] [address], [place] [phone] * (ABNORMAL) C-reactive protein (05/24/2025 2:32 PM EDT) [facility] C-Reactive Protein 1.5(H) <=0.9 mg/dL LAB CHEMISTRY METHOD 05/24/2025 6:16 PM EDT [facility] Blood Venous blood specimen / Unknown Venipuncture / Unknown 05/24/2025 2:32 PM EDT 05/24/2025 5:49 PM EDT us Lucas Patterson MD LAB BLOOD ORDERABLES Final Resul t [facility] [address] [place] [address], [place] [phone] * Lipid panel (12/02/2023) [facility] LDL/HDL Ratio 3 0 - 4 Triglycerides 149 0 - 150 mg/dL Cholesterol 177 0 - 200 mg/dL HDL 59 >=40 mg/dL LDL Cholesterol 89 0 - 100 mg/dL Blood Venous blood specimen / Unknown Historical Provider LAB BLOOD ORDERABLES Margy josé Result * Pap Smear (07/03/2023) Pap smear No Interpretation , Abstracted Historical Provider HEALTH MAINTENANCE Final Result * Hepatitis C Screening (04/16/2023) Hepatitis C Screening Abstracted Historical Provider HEALTH MAINTENANCE Final Result from Last 3 Months or Most Recently Relevant to Health Maintenance Insurance [employer] Care Teams Mat Cleaning Machine Operator Relationship Specialty Start Date End Date Carmen Berkowitz MD [address] [place] [phone] PCP - General 01/22/24
--- OUTSIDE RECORDS SUMMARY | 2025-06-08 15:13 | XMS_ITS | Encounter Summary ---
Author Organization [facility] Address [address] [place] [address] Care Team Providers Care Director Of Recruitment Name Role Phone Carmen Berkowitz MD Primary Care Provider Unavailable Encounter Details Date Type Department Care Team (Late st Contact Info) Description 01/14/2025 Scanned Document [facility] [address], [place] [phone] Samy Conn MD [address] [place] [phone] Social History Tobacco Use Types Packs/Day Years [...] on filedocumented in this encounter Care Teams Director Of Recruitment Relationship Specialty Start Date End Date Carmen Berkowitz MD PCP - General Internal Medicine 01/07/24 documented as of this encounter
--- OUTSIDE RECORDS SUMMARY | 2025-06-08 15:13 | XMS_ITS | Encounter Summary ---
Author Organization [facility] Address [address] [place] [address] Care Team Providers Care Collar Starcher Name Role Phone Carmen Berkowitz MD Primary Care Provider Unavailable Encounter Details Date Type Department Care Team (Late st Contact Info) Description 09/24/2024 Scanned Document [address] [place] [phone] Provider, Generic Social History Tobacco Use [...] on filedocumented in this encounter Care Teams Collar Starcher Relationship Specialty Start Date End Date Carmen Berkowitz MD PCP - General Internal Medicine 01/07/24 documented as of this encounter
--- OUTSIDE RECORDS SUMMARY | 2025-06-08 15:13 | XMS_ITS | Encounter Summary ---
Author Organization [facility] Address [address] [place] [address] Care Team Providers Care Cable Wirer Name Role Phone Carmen Berkowitz MD Primary Care Provider Unavailable Encounter Details Date Type Department Care Team (Late st Contact Info) Description 08/16/2024 Scanned Document [address] [place] [phone] Provider, Generic Social History Tobacco Use [...] on filedocumented in this encounter Care Teams Cable Wirer Relationship Specialty Start Date End Date Carmen Berkowitz MD PCP - General Internal Medicine 01/07/24 documented as of this encounter
--- OUTSIDE RECORDS SUMMARY | 2025-06-08 15:13 | XMS_ITS | Clinical Summary ---
Author Organization [facility] Address [address] [place] [address] Care Team Providers Care Picture Engraver Name Role Phone Carmen Berkowitz MD Primary [...] Take 1 capsule by mouth every morning. Acti ve cholecalciferol (VITAMIN D3) 125 MCG (5000 UT) capsule Take 1 capsule (5,000 Units total) by mouth every morning. Active escitalopram (LEXAPRO) 10 MG tablet Take 1 tablet (10 mg total) by mouth every evening. 05/17/20 Active inFLIXimab (REMICADE) 100 MG injection Infuse 5 mg/kg into a venous catheter See Admin Instructions. EVERY 7 WEEKS - IV Active Unithroid 75 MCG tablet Take 1 tablet (75 mcg total) by mouth daily on an empty stomach. Active Magnesium 500 MG Cap Take 1 tablet by mouth every morning. Acti ve onabotulinum toxin type A (Botox) 100 units Recon Soln injection Inject into the shoulder, thigh, or buttocks. EVERY 3 MONTHS - FOR MIGRAINES Active Ubrelvy 100 MG tablet TAKE 1 TABLET BY MOUTH DAILY NEEDED FOR MIGRAINE HEADACHE. MAY REPEAT DOSE IN 2 HOURS. DO NOT EXCEED 2 DOSES IN 24 HOURS 01/07/20 24 Active budesonide (PULMICORT) 0.5 mg/2 mL nebulizer solutionIndicat ions:Chronic pansinusitis Take 1 vial (0.5 mg total) by nebulization daily. 180 mL 3 02/11/20 25 Active Additional Information Patient taking differently:0.5 mg NebulizationEvery morning, Reason: Other, Reported on 05/07/2025 OMEprazole (PriLOSEC) 20 MG capsuleIndicati ons:Gastroesoph ageal reflux disease, unspecified whether esophagitis present TAKE 1 CAPSULE(20 MG) BY MOUTH TWICE DAILY BEFORE BREAKFAST AND DINNER 180 capsule 3 04/01/20 25 Active Azelastine-Flut icasone 137-50 MCG/ACT SuspensionIndic ations:Chronic rhinitis SHAKE LIQUID AND USE 2 SPRAYS IN EACH NOSTRIL TWICE DAILY 23 g 2 04/22/20 25 Active EPINEPHrine (ADRENALIN) 1 mg/mL Solution injection Inject 0.3 mL (0.3 mg total) under the skin once as needed. 04/01/20 25 026 Active Active Problems Problem Noted Date Diagnosed [...] Encounters Date Type Department Care Team Description 06/02/2025 8:00 AM EDT Clinical Support [facility] [address] [phone] Rose Vera Au.D Other abnormal auditory perceptions, left ear (Primary Dx) 05/07/2025 11:48 AM EDT Anesthesia Event [facility] [address] [place] [phone] Iván Perdomo MD Clair, Hannah A, PA-C 05/07/2025 11:15 AM EDT - 05/07/2025 11:45 AM EDT Surgery [facility] [address] [place] [phone] Leo Cates MD ENDOSCOPY UPPER 05/07/2025 11:07 AM EDT - 05/07/2025 12:50 PM EDT Hospital Encounter [facility] [address] [place] [phone] Leo Cates MD Discharge Disposition: Home or Self Care 05/06/2025 Travel 05/05/[address] [place] [phone] Kim Barton MA EGD 04/27/2025 10:00 AM EDT Telemedicine [address] [place] [phone] Petra Sampson APRN Gastroesophageal reflux disease, unspecified whether esophagitis present (Primary Dx); Irritable bowel syndrome with diarrhea; History of colon polyps 04/27/2025 Travel 04/22/2025 Refill [facility] [address], [place] [phone] Samy Conn MD Chronic rhinitis 04/22/2025 Refill [facility] [address] [phone] Samy Conn MD Chronic rhinitis 04/01/[address] [phone] Anni Maciel, KATALINA Gastroesophageal reflux disease, unspecified whether esophagitis present from Last 3 Months Immunizations Immunization Administration Dates Next Due H1N1 Inj 06/02/2010 Influenza (AFLURIA/FLUZONE) Inactivated/Split Quadrivalent with Preservative IM 05/03/2016 Influenza, Unspecified 05/27/2021 Tdap 06/08/2013 Family History Medical History Relation Name Comments Colon polyps Father Juan Irritable bowel syndrome Father Juan Cancer, other Maternal Aunt Michela Heart attack Maternal Grandfather [place] Autoimmune disease Maternal Grandmother Vianney Breast cancer Maternal Grandmother Vianney Diabetes Mother Mirlande Heart attack Mother Mirlande Hypertension Mother Mirlande Diabetes Paternal Grandfather Crispin Ulcerative colitis Paternal Grandmother Etta Relation Name Status Comments Father Juan Alive Maternal Aunt Michela Alive Maternal Grandfather Phil Alive Maternal Grandmother Vianney Alive Mother Mirlande [...] 05/06/2025 9:29 AM EDT Plan of Treatment Health Maintenance Due Date Last Done Comments Hepatitis C Virus Screening 1982 COVID-19 Vaccine (#1) 1987 Quantiferon Gold TB 1992 HIV Screening 1995 Hepatitis B Vaccines (1 of 3 - 19+ 3-dose series) 2001 Pneumococcal Vaccine: Pediat jody (0-5 Years) and At-Risk Patients (6 to 49 Years) (1 of 2 - PCV) 2001 Pap Smear (Ages 21-65) 2003 Mammogram 2022 DTaP/Tdap/Td Vaccines (2 - T d or Tdap) 06/08/2023 06/08/2013 Influenza Vaccine 04/02/2025 05/19/2024, , 05/27/2021, Additional history exists HPV Vaccines (No Doses Required) Completed Medical Devices Implanted Type Area Hatchery Attendant Device Identifier Shelf Expiration Date Model / Serial / Lot Screw Screw Neck Procedures Procedure Name Priority Date/Time Associated Diagnosis Comments PURE TONE AUDIOMETRY, AIR Routine 2024 8:00 AM EDT Other abnormal auditory perceptions, left ear OR ESOPHAGOGASTRODUODENOSCOP Y TRANSORAL DIAGNOSTIC 05/07/2025 11:47 AM EDT Stomach ache PATHOLOGY REPORT Routine 05/07/2025 12:00 AM EDT from Last 3 Months Results * PURE TONE AUDIOMETRY, AIR (06/02/2025 8:00 AM EDT) Narrative Rose Vera Au.D - 06/02/2025 8:00 AM EDT Torsten Oneal 06/02/2025 8:16 AM us Samy Conn MD AMB ORDERABLE PERFORMABLE Fin al Result * Pathology (05/07/2025 12:00 AM EDT) Report [facility] [id number] CLIA ID [id number] [address] [place] [address] [phone] Surgical Pathology Report PATIENT NAME: ROXANNE RENTERIA REC NUMBER: [id number] (AGE): 1980 (Age: 44) SPECIMEN NUMBER: [id number] DATE OBTAINED: 05/07/2025 DIAGNOSIS A. ENTIRE STOMACH, BIOPSY: ANTRAL MUCOSA WITH NO SPECIFIC PATHOLOGIC CHANGES; NO INFLAMMATION; NO HELICOBACTER PYLORI ORGANISMS SEEN ON H&E STAIN. B. ENTIRE ESOPHAGUS, BIOPSY: SQUAMOUS MUCOSA WITH NO SPECIFIC PATHOLOGIC CHANGES; NO INFLAMMATION/EOS INOPHILS. [facility]/05/09/2025 Electronically Signed Out MARIO ALCALA MD COMMENT [id number] Clinical Information and History: Procedure: Upper GI [...] specimen is submitted in toto labeled B1. [address] [facility] 05/07/2025 05/07/2025 12: 14 PM EDT Comment:ENTIRE STOMACH, NORM AL&ENTIRE ESOPHAGUS, NORMAL us Leo Cates MD PATHOLOGY/CYTOLOGY ORDERABLE S Final Result HOSPITAL LAB See Below from Last 3 Months Insurance [employer] [place] [id number] [facility] [employer] [place] [id number] [employer] [place] [id number] [employer] [place] [id number] [employer] PPO Care Teams Picture Engraver Relationship Specialty Start Date End Date Carmen Berkowitz MD PCP - General Internal Medicine 01/07/24
--- OUTSIDE RECORDS SUMMARY | 2025-06-08 15:13 | XMS_ITS | Clinical Summary ---
Author Organization [facility] Address [address] [place] [address] Care Team Providers Care Director Of Instruction Name Role Phone Carmen Berkowitz MD Primary [...] this topic Medical Devices Implanted Type Area Program/Music Director Device Identifier Shelf Expiration Date Model / Serial / Lot [place] Peek Knotless [place] Sgl 3.9mm Stry-Sprt [id number] - [id number] Implanted:Qty: 2 on 02/04/2024 by Petey Padilla DPM [place] [facility] Left: Foot [employer] 09/09/2025 [id number] [employer] Implant Implanted:Qty: 1 on 02/04/2024 by Petey Padilla DPM at [facility] Left: Foot [employer] 04/26/2025 REF # [id number] Description:#04.5X24MM XPRES S SYSTEM [employer] Implant Implanted:Qty: 1 on 02/04/2024 by Petey Padilla DPM at [facility] Left: Foot [employer] 04/26/2025 REF # [id number] Description:04.5 X 24MM Care Teams Director Of Instruction Relationship Specialty Start Date End Date Carmen Berkowitz MD [address] [place] [address] PCP - General 01/22/24
--- OUTSIDE RECORDS SUMMARY | 2025-06-08 15:13 | XMS_ITS | Encounter Summary ---
Author Organization [facility] Address [address] [place] [address] Care Team Providers Care Development And Planning Engineer Name Role Phone Carmen Berkowitz MD Primary Care Provider Unavailable Encounter Details Date Type Department Care Team (Late st Contact Info) Description 08/16/2024 Scanned Document [address] [place] [phone] Provider, Generic Social History Tobacco Use [...] on filedocumented in this encounter Care Teams Development And Planning Engineer Relationship Specialty Start Date End Date Carmen Berkowitz MD PCP - General Internal Medicine 01/07/24 documented as of this encounter
== END 2025-06-08 12:57 | disposition home or self-care (01) ==
LOC: HO.HSM 12:17
PROVIDERS: PCP Family Medicine; Visit Provider Nurse Practitioner
DX: G43.E09 Chronic migraine with aura, not intractable, without status migrainosus (principal)
CPT/HCPCS: 64615

== ENCOUNTER → 2025-06-08 12:16 | Outpatient (BNVA) | payer OTHER, SELFPAY | PROVIDERS: PCP Family Medicine; Visit Provider Nurse Practitioner | DX: G43.E09 Chronic migraine with aura, not intractable, without status migrainosus (principal) | CPT/HCPCS: 64615; J0585 ==